=== PATIENT | male | born 1990 | race Caucasian/White ===

== ENCOUNTER 2017-01-13 18:15 | Emergency (ER) | payer MEDICAID ==
[2017-01-13] MEDS ORDERED: NORMAL SALINE 1000 ML 1,000 ML IV ONE (19:10)
[2017-01-13 19:15] LABS: ADD ON TESTING BLD IN LAB ACKNOWLEDGE
--- NOTE | 2017-01-13 19:25 | ER Document Report ---
ED General - General Chief Complaint: Chest Pain Stated Complaint: CHEST PAIN Cannot obtain history due to: Mentally challenged Notes: Patient is a 26-year-old male past history of autism who presents with chest pain. Patient does have difficulty with verbal communication so history is limited. The materials branch chief from his [facility] at the bedside states the patient began complaining of chest pain earlier this morning. He has not complained of this in the past. Patient fell states that his chest feels "cold" but is unable to better clarify his symptoms. Per medical records with the patient he has no prior cardiac history or history of DVT or pulmonary embolus. TRAVEL OUTSIDE OF THE [place] IN LAST 30 DAYS: No - Related Data Allergies/Adverse Reactions: No Known Allergies Allergy (Unverified 11/27/11 16:11) Past Medical History - General Information source: Patient - Social History Smoking Status: Never Smoker Frequency of alcohol use: None Drug Abuse: None Lives with: Other - nursing home Family History: Reviewed & Not Pertinent - Past Medical History Cardiac Medical History: Denies: Hx Coronary Artery Disease, Hx Heart Attack, Hx Hypertension Pulmonary Medical History: Reports: Hx Asthma Denies: Hx Bronchitis, Hx COPD, Hx Pneumonia Neurological Medical History: Denies: Hx Cerebrovascular Accident, Hx Seizures Musculoskeltal Medical History: Denies Hx Arthritis Past Surgical History: Denies: Hx Pacemaker - Immunizations Hx Diphtheria, Pertussis, Tetanus Vaccination: Yes Review of Systems - Review of Systems Notes: Constitutional: Negative for fever. HENT: Negative for sore throat. Eyes: Negative for visual changes. Cardiovascular: Positive for chest pain. Respiratory: Negative for shortness of breath. Gastrointestinal: Negative for abdominal pain, vomiting or diarrhea. Genitourinary: Negative for dysuria. Musculoskeletal: Negative for back pain. Skin: Negative for rash. Neurological: Negative for headaches, weakness or numbness. 10 point ROS negative except as marked above and in HPI. Physical Exam - Vital signs Interpretation: Normal Notes: PHYSICAL EXAMINATION: GENERAL: Well-appearing, well-nourished and in no acute distress. HEAD: Atraumatic, normocephalic. EYES: Pupils equal round and reactive to light, extraocular movements intact, sclera anicteric, conjunctiva are normal. ENT: nares patent, oropharynx clear without exudates. Moist mucous membranes. NECK: Normal range of motion, supple without lymphadenopathy LUNGS: Breath sounds clear to auscultation bilaterally and equal. No wheezes rales or rhonchi. HEART: Regular rate and rhythm without murmurs ABDOMEN: Soft, nontender, normoactive bowel sounds. No guarding, no rebound. No masses appreciated. EXTREMITIES: Normal range of motion, no pitting or edema. No cyanosis. NEUROLOGICAL: No focal neurological deficits. Moves all extremities spontaneously and on command. PSYCH: Apparent intellectual delay SKIN: Warm, Dry, normal turgor, no rashes or lesions noted. Course - Re-evaluation Re-evalutation: 01/13/17 19:21 Patient is a 26-year-old male with history of advanced autism, minimally verbal who presents with concerns of chest pain. Patient's only reported medical history is apparently a prior history of stroke although patient denies knowing anything about this and does not have any focal deficits on exam that would suggest a prior stroke in the past. Patient is notably tachycardic at time of arrival with a heart rate of 118-120. His oxygen saturations are 95% on room air. No tachypnea. Exam is notable for patient shaking and seeming like he is having difficulty sitting up easily in the bed. Will obtain chest x-ray, labs including d-dimer to evaluate for possible pulmonary embolus given tachycardia. 01/13/17 20:33 Patient's d-dimer is normal. Troponin likewise is normal chest x-ray is clear. Patient has had improvement of his discomfort with the GI cocktail. Given that his pain started 8 hours prior to arrival, I do not believe serial troponins are indicated and patient does not have any significant risk factors for ACS.At this time will discharge with return precautions and follow-up recommendations. Verbal discharge instructions given a the bedside and opportunity for questions given. Medication warnings reviewed. Patient is in agreement with this plan and has verbalized understanding of return precautions and the need for primary care follow-up in the next 24-72 hours. HEART Score: History:0 EC Age:0 Risk Factors:0 Troponin:0 Total: 0 - Laboratory Result Diagrams: 01/13/17 18:45 01/13/17 18:45 Laboratory results interpreted by me: 01/13/17 01/13/17 18:45 18:45 RBC 4.09 L Lymphocytes % 12.8 L Monocytes % 14.0 H Glucose 115 H - Diagnostic Test Radiology reviewed: Image reviewed, Reports reviewed Radiology results interpreted by me: 01/13/17 20:35 Chest x-ray: No acute infiltrate or widened mediastinum - EKG Interpretation by Me Additional EKG results interpreted by me: 01/13/17 19:24 Sinus tachycardia. Rate 113. No ST elevations or depressions. No right axis deviation. QTC is 445 Discharge - Discharge Clinical Impression: Chest pain Qualifiers: Chest pain type: unspecified Qualified Code(s): R07.9 - Chest pain, unspecified Condition: Good Disposition: HOME, SELF-CARE Additional Instructions: You were seen today for chest pain. The exact cause of your pain is unclear. However, based on your cardiac enzyme testing, chest x-ray, and EKG it does not appear that it is from an immediately life-threatening cause at this time. Although your testing here is normal is critical that you follow-up with your primary care physician for continued evaluation of this chest pain and possible stress testing. I recommended you see your physician within the next 24-48 hours to be evaluated for consideration of a stress test. Please return to emergency department immediately if you have worsening of your chest pain, shortness of breath, vomiting, become unable to exert yourself due to pain or difficulty breathing, you pass out, or have any pain that radiates into your arms, jaw, or back. Please also return if you have any additional symptoms that are concerning to you.
[2017-01-13 19:28] LABS: ANION GAP 14 (5-19); BLOOD UREA NITROGEN 13 mg/dL (7-20); CALCIUM 9.1 mg/dL (8.4-10.2); CARBON DIOXIDE 26 mmol/L (22-30); CHLORIDE 104 mmol/L (98-107); CREATININE RESULT 0.66 mg/dL (0.52-1.25); GLUCOSE 115 mg/dL (75-110); SODIUM 143.5 mmol/L (137-145)
[2017-01-13 19:29] LABS: ABSOLUTE EOSINOPHILS # (AUTO) 0.1 10^3/uL (0.0-0.6); ABSOLUTE LYMPHOCYTES (AUTO) 0.7 10^3/uL (0.5-4.7); ABSOLUTE MONOCYTES (AUTO) 0.8 10^3/uL (0.1-1.4); BASOPHILS % (AUTO) 0.1 % (0-2); EOSINOPHILS % (AUTO) 1.3 % (0-6); HEMATOCRIT 38.9 % (37.9-51.0); HEMOGLOBIN 13.6 g/dL (13.5-17.0); HGB HCT DIFFERENCE 1.9; LYMPHOCYTES % (AUTO) 12.8 % (13-45); MEAN CORPUSCULAR HEMOGLOBIN 33.3 pg (27.0-33.4); MEAN CORPUSCULAR HGB CONC 34.9 g/dL (32.0-36.0); MEAN CORPUSCULAR VOLUME 95 fl (80-97); RED BLOOD COUNT 4.09 10^6/uL (4.35-5.55); RED CELL DISTRIBUTION WIDTH 13.2 % (11.5-14.0); SEGMENTED NEUTROPHILS % (AUTO) 71.8 % (42-78); WHITE BLOOD COUNT 5.5 10^3/uL (4.0-10.5)
[2017-01-13] MEDS ORDERED: MAG HYDROX/AL HYDROX/SIMETH SUSP 30 ML UDCUP PO ONE (20:23)
[2017-01-13] MEDS ORDERED: LIDOCAINE 2% VISCOUS SOLN 20 ML UDCUP PO ONE (20:23)
[2017-01-13] MEDS ORDERED: METOCLOPRAMIDE HCL ORAL SOLN 10 MG/10 ML UDCUP PO ONE (20:23)
[2017-01-13] MEDS ORDERED: KETOROLAC TROMETHAMINE INJ/PF 30 MG/1 ML SDV IV ONE (20:46)
[2017-01-13 21:02] VITALS: BP 130/84
--- NOTE | 2017-01-14 00:06 | EKG REPORT ---
SEVERITY:- OTHERWISE NORMAL ECG - SINUS TACHYCARDIA : Confirmed by: Jessy Renner 14-Jan-2017 00:05:05
== END 2017-01-13 21:17 | disposition home or self-care (01) ==
LOC: ER 18:15
DX: R07.9 Chest pain, unspecified (principal); R00.0 Tachycardia, unspecified; F84.0 Autistic disorder; J45.909 Unspecified asthma, uncomplicated
CPT/HCPCS: 93005; 99285; 96361; 96374; 36415; 85025; 80048; 84484; 85379; 71010; 93010; J3490 ×3; J1885; J7030

== ENCOUNTER → 2017-06-21 | Outpatient (CLI) | payer MEDICAID ==
[2017-06-21 11:45] LABS: ABSOLUTE EOSINOPHILS # (AUTO) 0.1 10^3/uL (0.0-0.6); ABSOLUTE LYMPHOCYTES (AUTO) 1.8 10^3/uL (0.5-4.7); ABSOLUTE MONOCYTES (AUTO) 0.4 10^3/uL (0.1-1.4); ABSOLUTE NEUT (AUTO) 2.2 10^3/uL (1.7-8.2); BASOPHILS % (AUTO) 0.4 % (0-2); EOSINOPHILS % (AUTO) 2.2 % (0-6); HEMOGLOBIN 13.4 g/dL (13.5-17.0); HGB HCT DIFFERENCE 1.2; LYMPHOCYTES % (AUTO) 39.1 % (13-45); MEAN CORPUSCULAR HEMOGLOBIN 33.3 pg (27.0-33.4); MEAN CORPUSCULAR HGB CONC 34.3 g/dL (32.0-36.0); MEAN CORPUSCULAR VOLUME 97 fl (80-97); MONOCYTES % (AUTO) 9.3 % (3-13); RED BLOOD COUNT 4.02 10^6/uL (4.35-5.55); RED CELL DISTRIBUTION WIDTH 13.5 % (11.5-14.0); WHITE BLOOD COUNT 4.5 10^3/uL (4.0-10.5)
[2017-06-21 11:54] LABS: ALANINE AMINOTRANSFERASE 49 U/L (21-72); ALBUMIN 4.4 g/dL (3.5-5.0); ALKALINE PHOSPHATASE 86 U/L (38-126); ANION GAP 14 (5-19); ASPARTATE AMINO TRANSFERASE 29 U/L (17-59); BILIRUBIN,DIRECT 0.4 mg/dL (0.0-0.4); BILIRUBIN,TOTAL 0.4 mg/dL (0.2-1.3); BLOOD UREA NITROGEN 11 mg/dL (7-20); CALCIUM 10.1 mg/dL (8.4-10.2); CARBON DIOXIDE 27 mmol/L (22-30); CHLORIDE 102 mmol/L (98-107); CHOLESTEROL 175.96 mg/dL (0-200); CREATININE RESULT 0.83 mg/dL (0.52-1.25); Direct HDL 46 mg/dL (>40); GLUCOSE 91 mg/dL (75-110); POTASSIUM 4.8 mmol/L (3.6-5.0); SODIUM 143.3 mmol/L (137-145); TOTAL PROTEIN 7.1 g/dL (6.3-8.2); TRIGLYCERIDES 200 mg/dL (<150)
[2017-06-21 12:05] LABS: DIRECT LDL 109 mg/dL (<100); VALPROIC ACID 90.1 ug/mL (50.0-120.0)
== END ==
LOC: OD 10:43
PROVIDERS: ATTEND Physician Assistant
DX: F43.12 Post-traumatic stress disorder, chronic (principal); Z79.899 Other long term (current) drug therapy
CPT/HCPCS: 36415; 80053; 80061; 80164; 83036; 85025

== ENCOUNTER → 2018-06-21 | Outpatient (CLI) | payer MEDICAID ==
[2018-06-21 09:42] LABS: ABSOLUTE EOSINOPHILS # (AUTO) 0.1 10^3/uL (0.0-0.6); ABSOLUTE LYMPHOCYTES (AUTO) 1.7 10^3/uL (0.5-4.7); ABSOLUTE MONOCYTES (AUTO) 0.5 10^3/uL (0.1-1.4); ABSOLUTE NEUT (AUTO) 1.8 10^3/uL (1.7-8.2); BASOPHILS % (AUTO) 0.5 % (0-2); EOSINOPHILS % (AUTO) 2.3 % (0-6); HEMATOCRIT 38.9 % (37.9-51.0); HEMOGLOBIN 13.4 g/dL (13.5-17.0); LYMPHOCYTES % (AUTO) 41.4 % (13-45); MEAN CORPUSCULAR HGB CONC 34.3 g/dL (32.0-36.0); MEAN CORPUSCULAR VOLUME 96 fl (80-97); PLATELET COUNT 173 10^3/uL (150-450); RED BLOOD COUNT 4.05 10^6/uL (4.35-5.55); RED CELL DISTRIBUTION WIDTH 13.3 % (11.5-14.0); SEGMENTED NEUTROPHILS % (AUTO) 43.8 % (42-78); TOTAL CELLS COUNTED % (AUTO) 100 %; WHITE BLOOD COUNT 4.2 10^3/uL (4.0-10.5)
[2018-06-21 10:05] LABS: ALANINE AMINOTRANSFERASE 43 U/L (21-72); ALBUMIN 4.5 g/dL (3.5-5.0); ALKALINE PHOSPHATASE 79 U/L (38-126); ANION GAP 12 (5-19); ASPARTATE AMINO TRANSFERASE 25 U/L (17-59); BILIRUBIN,DIRECT 0.2 mg/dL (0.0-0.4); BILIRUBIN,TOTAL 0.4 mg/dL (0.2-1.3); BLOOD UREA NITROGEN 11 mg/dL (7-20); CALCIUM 9.9 mg/dL (8.4-10.2); CARBON DIOXIDE 26 mmol/L (22-30); CHLORIDE 103 mmol/L (98-107); CHOLESTEROL 171.25 mg/dL (0-200); GLUCOSE 93 mg/dL (75-110); POTASSIUM 4.5 mmol/L (3.6-5.0); SODIUM 141.4 mmol/L (137-145); TOTAL PROTEIN 7.1 g/dL (6.3-8.2); TRIGLYCERIDES 204 mg/dL (<150)
[2018-06-21 10:31] LABS: DIRECT LDL 91 mg/dL (<100)
[2018-06-21 10:35] LABS: VLDL CHOLESTEROL 40.8 mg/dL (10-31)
== END ==
LOC: LAB 09:16
PROVIDERS: ATTEND Physician Assistant
DX: F43.12 Post-traumatic stress disorder, chronic (principal); Z79.899 Other long term (current) drug therapy
CPT/HCPCS: 36415; 80053; 80061; 80164; 83036; 84146; 85025

== ENCOUNTER → 2019-04-14 | Outpatient (CLI) | payer MEDICAID ==
[2019-04-14 10:30] LABS: ABSOLUTE EOSINOPHILS # (AUTO) 0.2 10^3/uL (0.0-0.6); ABSOLUTE LYMPHOCYTES (AUTO) 1.9 10^3/uL (0.5-4.7); ABSOLUTE MONOCYTES (AUTO) 0.4 10^3/uL (0.1-1.4); ABSOLUTE NEUT (AUTO) 1.8 10^3/uL (1.7-8.2); BASOPHILS % (AUTO) 0.3 % (0-2); EOSINOPHILS % (AUTO) 5.2 % (0-6); HEMATOCRIT 40.6 % (37.9-51.0); HEMOGLOBIN 14.1 g/dL (13.5-17.0); LYMPHOCYTES % (AUTO) 43.1 % (13-45); MEAN CORPUSCULAR HEMOGLOBIN 33.4 pg (27.0-33.4); MEAN CORPUSCULAR HGB CONC 34.8 g/dL (32.0-36.0); MEAN CORPUSCULAR VOLUME 96 fl (80-97); MONOCYTES % (AUTO) 9.5 % (3-13); PLATELET COUNT 162 10^3/uL (150-450); RED BLOOD COUNT 4.23 10^6/uL (4.35-5.55); RED CELL DISTRIBUTION WIDTH 13.3 % (11.5-14.0); SEGMENTED NEUTROPHILS % (AUTO) 41.9 % (42-78); TOTAL CELLS COUNTED % (AUTO) 100 %; WHITE BLOOD COUNT 4.4 10^3/uL (4.0-10.5)
[2019-04-14 10:54] LABS: ALANINE AMINOTRANSFERASE 42 U/L (21-72); ALBUMIN 4.6 g/dL (3.5-5.0); ALKALINE PHOSPHATASE 79 U/L (38-126); ANION GAP 10 (5-19); ASPARTATE AMINO TRANSFERASE 30 U/L (17-59); BILIRUBIN,DIRECT 0.2 mg/dL (0.0-0.4); BILIRUBIN,TOTAL 0.3 mg/dL (0.2-1.3); BLOOD UREA NITROGEN 11 mg/dL (7-20); CALCIUM 9.7 mg/dL (8.4-10.2); CARBON DIOXIDE 29 mmol/L (22-30); CHLORIDE 103 mmol/L (98-107); CHOLESTEROL 193.55 mg/dL (0-200); GLUCOSE 89 mg/dL (75-110); POTASSIUM 4.9 mmol/L (3.6-5.0); SODIUM 141.8 mmol/L (137-145); TOTAL PROTEIN 7.2 g/dL (6.3-8.2); TRIGLYCERIDES 256 mg/dL (<150)
[2019-04-14 11:05] LABS: DIRECT LDL 116 mg/dL (<100)
[2019-04-14 11:06] LABS: VLDL CHOLESTEROL 51.2 mg/dL (10-31)
== END ==
LOC: OD 09:31
PROVIDERS: ATTEND Physician Assistant
DX: F43.12 Post-traumatic stress disorder, chronic (principal); Z79.899 Other long term (current) drug therapy
CPT/HCPCS: 36415; 80053; 80061; 80164; 83036; 84146; 85025

== ENCOUNTER 2019-11-05 09:53 | Inpatient (IN) | payer MEDICAID ==
[2019-11-05] MEDS ORDERED: NORMAL SALINE 1000 ML 1,000 ML IV ONE (10:29)
[2019-11-05] MEDS ORDERED: ONDANSETRON HCL INJ/PF 4 MG/2 ML SDV IV ONE (10:29)
[2019-11-05] MEDS ORDERED: IPRATROPIUM/ALBUTEROL 0.5-2.5 MG/3 ML AMPUL NEB SCH ×2 (10:30)
--- NOTE | 2019-11-05 10:41 | ER Document Report ---
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 Vomiting x1. Some minimal nasal congestion. Mild nonproductive cough. Minimal sore throat. No complaints of chest or abdominal pain. No rash appreciated. ROS: See HPI All other review of systems reviewed and otherwise negative Reviewed vital signs and nursing note as charted by RN. PHYSICAL EXAM: CONSTITUTIONAL: Alert and does answer questions HEAD: Normocephalic; atraumatic EYES: PERRL; Conjunctivae clear, sclerae non-icteric ENT: Normal nose; bilateral nonpurulent nasal rhinorrhea; moist mucous membranes; pharynx minimally erythematous with no peritonsillar swelling with a nonswollen midline uvula NECK: Supple without meningismus; non-tender; no cervical lymphadenopathy, no masses CARD: Regular rate and rhythm; no murmurs; symmetric distal pulses RESP: Normal chest excursion without splinting or tachypnea; breath sounds clear and equal bilaterally; no wheezes, no rhonchi, no rales ABD/GI: Normal bowel sounds; non-distended; soft, non-tender; no palpable organomegaly or masses BACK: The back appears normal and is non-tender to palpation EXT: Normal ROM in all joints; non-tender to palpation; no edema SKIN: No acute lesions noted NEURO: CN 2-12 intact; 5/5 bilateral upper and lower extremity strength with sensation intact to light touch TRAVEL OUTSIDE OF THE [place] IN LAST 30 DAYS: No - Related Data Allergies/Adverse Reactions: acetaminophen [From Tylenol] Allergy (Verified 11/05/19 10:32) Past Medical History - Social History Smoking Status: Never Smoker Family History: Reviewed & Not Pertinent Patient has suicidal ideation: No Patient has homicidal ideation: No - Past Medical History Cardiac Medical History: Denies: Hx Coronary Artery Disease, Hx Heart Attack, Hx Hypertension Pulmonary Medical History: Reports: Hx Asthma Denies: Hx Bronchitis, Hx COPD, Hx Pneumonia Neurological Medical History: Denies: Hx Cerebrovascular Accident, Hx Seizures Musculoskeletal Medical History: Denies Hx Arthritis Past Surgical History: Denies: Hx Pacemaker - Immunizations Hx Diphtheria, Pertussis, Tetanus Vaccination: Yes Physical Exam - Vital signs Vitals: Temp Pulse Resp BP Pulse Ox 97.2 F 99 23 H 100/71 94 11/05/19 09:53 11/05/19 09:53 11/05/19 09:53 11/05/19 09:53 11/05/19 09:53 Course - Re-evaluation Re-evalutation: 11/05/19 10:40 Given the history and physical examination we will order a rapid strep, influenza, x-ray of the chest, and reassess. Patient initial oxygen saturation was supposedly in the 80s on room air. He received 1 nebulizer. I do not auscultate any rhonchi or wheezing. 11/05/19 12:00 Imaging and labs as recorded. Oxygenation is improved on 2 L. Broad-spectrum antibiotics have been provided. Blood cultures have been sent. Influenza is negative. Patient will be admitted for further evaluation and treatment. - Vital Signs Vital signs: Temp Pulse Resp BP Pulse Ox 98.0 F 99 22 H 108/67 90 L 11/05/19 10:58 11/05/19 09:53 11/05/19 11:17 11/05/19 11:17 11/05/19 11:17 - Laboratory Result Diagrams: 11/05/19 10:23 11/05/19 10:23 Laboratory results interpreted by me: 11/05/19 11/05/19 11/05/19 10:15 10:23 10:23 RBC 4.28 L Plt Count 114 L Lymph % (Auto) 5.5 L Seg Neutrophils % 83.2 H Sodium 135.7 L Chloride 97 L BUN 23 H Glucose 174 H POC Glucose 215 H Discharge - Discharge Clinical Impression: Bacterial pneumonia, Hypoxia Condition: Fair Disposition: ADMITTED INPATIENT Admitting Provider: Phyllis (Hospitalist) Referrals: ANNEMARIE ANGULO PA-C [NO LOCAL MD] - Follow up as needed
[2019-11-05 11:03] LABS: ABSOLUTE LYMPHOCYTES (AUTO) 0.5 10^3/uL (0.5-4.7); ABSOLUTE MONOCYTES (AUTO) 0.9 10^3/uL (0.1-1.4); ABSOLUTE NEUT (AUTO) 6.8 10^3/uL (1.7-8.2); BASOPHILS % (AUTO) 0.2 % (0-2); HEMATOCRIT 40.8 % (37.9-51.0); HEMOGLOBIN 14.1 g/dL (13.5-17.0); LYMPHOCYTES % (AUTO) 5.5 % (13-45); MEAN CORPUSCULAR HEMOGLOBIN 33.1 pg (27.0-33.4); MEAN CORPUSCULAR HGB CONC 34.7 g/dL (32.0-36.0); MEAN CORPUSCULAR VOLUME 96 fl (80-97); MONOCYTES % (AUTO) 11.1 % (3-13); PLATELET COUNT 114 10^3/uL (150-450); RED BLOOD COUNT 4.28 10^6/uL (4.35-5.55); RED CELL DISTRIBUTION WIDTH 13.3 % (11.5-14.0); SEGMENTED NEUTROPHILS % (AUTO) 83.2 % (42-78); TOTAL CELLS COUNTED % (AUTO) 100 %; WHITE BLOOD COUNT 8.2 10^3/uL (4.0-10.5)
[2019-11-05 11:19] LABS: A TYPE INFLUENZA AG NEGATIVE (NEGATIVE); B INFLUENZA AG NEGATIVE (NEGATIVE)
[2019-11-05 11:25] LABS: ALBUMIN 3.6 g/dL (3.5-5.0); ALKALINE PHOSPHATASE 92 U/L (38-126); ANION GAP 12 (5-19); ASPARTATE AMINO TRANSFERASE 51 U/L (17-59); BILIRUBIN,DIRECT 0.4 mg/dL (0.0-0.4); BILIRUBIN,TOTAL 0.6 mg/dL (0.2-1.3); BLOOD UREA NITROGEN 23 mg/dL (7-20); CARBON DIOXIDE 27 mmol/L (22-30); CHLORIDE 97 mmol/L (98-107); GLUCOSE 174 mg/dL (75-110); TOTAL PROTEIN 6.4 g/dL (6.3-8.2)
--- NOTE | 2019-11-05 11:31 | RADIOLOGY REPORT (SQ) ---
EXAM DESCRIPTION: SHOULDER RIGHT 2 OR MORE VIEWS COMPLETED DATE/TIME: 11/05/2019 11:17 am REASON FOR STUDY: fell out of bed COMPARISON: None. NUMBER OF VIEWS: Three views. TECHNIQUE: Internal rotation, external rotation, and Y view images acquired of the right shoulder. LIMITATIONS: None. FINDINGS: MINERALIZATION: Normal. BONES: No acute fracture. No worrisome bone lesions. JOINTS: There is widening of the AC joint measured at 6.9 mm. This normally ranges between 2 and 4 m m. This could represent chronic or acute separation. VISUALIZED LUNGS AND RIBS: No pneumothorax. No rib fracture. SOFT TISSUES: No radiopaque foreign body. OTHER: No other significant finding. IMPRESSION: Widening of the right AC joint as described. No fracture. TECHNICAL DOCUMENTATION: JOB ID: [id number] [employer]- All Rights Reserved Reading location - IP/workstation name: [email or web address]
--- NOTE | 2019-11-05 11:32 | RADIOLOGY REPORT (SQ) ---
EXAM DESCRIPTION: CHEST 2 VIEWS COMPLETED DATE/TIME: 11/05/2019 11:17 am REASON FOR STUDY: 35; cough and sob COMPARISON: 03/19/2009 EXAM PARAMETERS: NUMBER OF VIEWS: two views TECHNIQUE: Digital Frontal and Lateral radiographic views of the chest acquired. RADIATION DOSE: NA LIMITATIONS: none FINDINGS: LUNGS AND PLEURA: Left lower lobe infiltrate consistent with pneumonia. Probable small le ft effusion. Minimal right basilar airspace disease either atelectasis or pneumonia. Underlying ple ural base mass on the left cannot be excluded. MEDIASTINUM AND HILAR STRUCTURES: No masses or contour abnormalities. HEART AND VASCULAR STRUCTURES: Heart normal size. No evidence for failure. BONES: No acute findings. HARDWARE: None in the chest. OTHER: No other significant finding. IMPRESSION: Findings most likely represent left lower lobe pneumonia and a small effusion. Follow-u p films are recommended to exclude underlying mass lesion. TECHNICAL DOCUMENTATION: JOB ID: [id number] [employer]- All Rights Reserved Reading location - IP/workstation name: [email or web address]
[2019-11-05] MEDS ORDERED: AZITHROMYCIN INJ 500 MG VIAL IV ONE (11:50)
[2019-11-05] MEDS ORDERED: CEFTRIAXONE 1 GM/D5W RTU 1 GM/50 ML RTUPB IV ONE (11:50)
[2019-11-05] MEDS ORDERED: MAGNESIUM HYDROXIDE SUSP 30 ML UDCUP PO PRN (13:32)
[2019-11-05] MEDS ORDERED: PROMETHAZINE HCL INJ 25 MG/1 ML VIAL IV PRN (13:32)
--- NOTE | 2019-11-05 13:54 | PDOC H&P ---
History of Present Illness Admission Date/PCP: BISHNU CID PA-C History of Present Illness: ANTHONY CARLSON is a 29 year old male who has a day history now of fall fever chills body aches. Patient unfortunately is autistic and lives in a [facility] so therefore his history is given by his care provider. They said on Sunday he started complaining of just not feeling well and then on Sunday he complained more body aches. Sunday he started running a fever today she was get ready taking to his primary care provider when he was just so weak he could not get out of bed she called 911. Patient has also had a cough. Chest x-ray today shows a probable left lower lobe pneumonia and a small effusion. White blood cell counts 8200. Rapid strep is negative flu flu a and B is negative Lactic acid level is pending Will be started on IVs Rocephin and Zithromax, IV fluids. Told the care provider that was in the room may take up to 5 days for the patient to improve enough to where he can be switched to p.o. antibiotics. Also if this is a viral illness the antibiotics will not make much of a difference. Since his illness is gone on for 4 days now he is out of the window for Tamiflu that I would potentially add to the antibiotics Patient did answer my questions appropriately in the emergency room, though he appeared to be somewhat lethargic. Caregiver states that he is normally usually wide awake and active. Past Medical History Cardiac Medical History: Denies: Coronary Artery Disease, Myocardial Infarction, Hypertension Pulmonary Medical History: Reports: Asthma Denies: Bronchitis, Chronic Obstructive Pulmonary Disease (COPD), Pneumonia Neurological Medical History: Denies: Seizures Musculoskeltal Medical History: Denies: Arthritis Hematology: Denies: Anemia Past Surgical History Past Surgical History: Denies: Pacemaker Social History Smoking Status: Never Smoker - Advance Directive Resuscitation Status: Full Code Family History Family History: Reviewed & Not Pertinent Parental Family History Reviewed: No Children Family History Reviewed: No Sibling(s) Family History Reviewed.: No Medication/Allergy Home Medications: Bismuth Subsalicylate [Pepto-Bismol 262 Chewable Tablet] 2 PO Q4 PRN 11/27/11 Clindamycin Phos/Benzoyl Perox [Clindamycin-Benzoyl Perox Gel] 50 gm TP BID 11/27/11 Divalproex Sodium [Depakote ER 500 mg Tab.sr] 1,500 mg QHS 11/27/11 Doxycycline Hyclate 100 mg PO DAILY 11/27/11 Ibuprofen [Motrin] 200 mg PO Q6 11/27/11 Lamotrigine [Lamictal Odt] DAILY 11/27/11 Lanolin/Petrolatum,White [Phisoderm Regular Liq. Soap] 480 ml TP BID 11/27/11 Levothyroxine Sodium [Tirosint] 110 mcg PO DAILY 11/27/11 Meclizine 25 mg PO TID PRN 11/27/11 Megestrol Acetate [Megace] 800 mg PO DAILY 11/27/11 Multivitamins/Iron/Folic Acid [Cerovite Advanced Form Tab] 1 each PO DAILY 11/27/11 Neomy Sulf/Bacitra/Polymyxin B [Triple Antibiotic Ointment] BID 11/27/11 Oxcarbazepine [Trileptal] 600 mg PO QHS 11/27/11 Quetiapine Fumarate [Seroquel] 800 mg PO QHS 11/27/11 Ranitidine HCl [Zantac] 150 mg PO BID 11/27/11 Trazodone HCl [Oleptro Er] 300 mg PO QHS 11/27/11 Omeprazole 20 mg 12/07/11 Allergies/Adverse Reactions: acetaminophen [From Tylenol] Allergy (Verified 11/05/19 10:32) Review of Systems Constitutional: PRESENT: chills, fatigue, fever(s), weakness Respiratory: PRESENT: cough Gastrointestinal: ABSENT: abdominal pain, constipation, diarrhea, hematemesis, hematochezia, nausea, vomiting Neurological: ABSENT: abnormal gait, abnormal speech, confusion, dizziness, focal weakness, syncope Psychiatric: ABSENT: anxiety, depression, homidical ideation, suicidal ideation Physical Exam Vital Signs: Temp Pulse Resp BP Pulse Ox 98.0 F 99 18 104/68 88 L 11/05/19 10:58 11/05/19 09:53 11/05/19 13:20 11/05/19 13:01 11/05/19 13:20 Intake & Output 11/04/19 11/05/19 11/06/19 06:59 06:59 06:59 Intake Total 1000 Balance 1000 Weight 100.879 kg General appearance: PRESENT: no acute distress, other - Patient is sleepy but arouses easily to voice command. States he just does not feel good Respiratory exam: PRESENT: decreased breath sounds, rhonchi Cardiovascular exam: PRESENT: RRR. ABSENT: diastolic murmur, rubs, systolic murmur Neurological exam: PRESENT: awake, other - Caregiver states he is usually much more alert and energetic talkative Psychiatric exam: PRESENT: depressed, flat affect, unusual affect, other - Patient lives in a penitentiary secondary to his autism Results Laboratory Results: 11/05/19 10:23 11/05/19 10:23 11/05/19 11/05/19 10:23 10:23 WBC 8.2 RBC 4.28 L Hgb 14.1 Hct 40.8 MCV 96 MCH 33.1 MCHC 34.7 RDW 13.3 Plt Count 114 L Seg Neutrophils % 83.2 H Sodium 135.7 L Potassium 4.0 Chloride 97 L Carbon Dioxide 27 Anion Gap 12 BUN 23 H Creatinine 0.84 Est GFR ( Amer) > 60 Glucose 174 H Calcium 9.0 Total Bilirubin 0.6 AST 51 Alkaline Phosphatase 92 Total Protein 6.4 Albumin 3.6 Impressions: Shoulder X-Ray 11/05/19 00:00 IMPRESSION: Widening of the right AC joint as described. No fracture. Chest X-Ray 11/05/19 10:29 IMPRESSION: Findings most likely represent left lower lobe pneumonia and a small effusion. Follow-up films are recommended to exclude underlying mass lesion. Assessment and Plan - Diagnosis (1) Autism Is this a current diagnosis for this admission?: Yes (2) Bacterial pneumonia Is this a current diagnosis for this admission?: Yes (3) Hypoxia Is this a current diagnosis for this admission?: Yes - Plan Summary Summary: 11/04/2019 Start patient on IV fluids, broad-spectrum IV antibiotics. I have actually called the lab and spoken to them about our flu swabs. Lab inform me that they are very specific and sensitive in about 95% accurate. Also that the ED staff is been trained on how to take a specimen, therefore I doubt that the patient has the flu. Lactic acid is pending, serial labs will be drawn - Time Time Spent with patient: 35 or more minutes
[2019-11-05] MEDS: NORMAL SALINE 1000 ML 1,000 ML IV PRN (18:58)
[2019-11-05] MEDS: DOCUSATE SODIUM 100 MG CAPSULE PO SCH (20:30)
[2019-11-05] MEDS: IBUPROFEN 800 MG TABLET PO PRN (21:53)
[2019-11-05] MEDS ORDERED: INFLUENZA QUAD (6MOS+) 2019-20 VAC 0.5 ML SYR IM ONE (22:40)
[2019-11-05] MEDS: OXCARBAZEPINE 150 MG TABLET PO SCH (23:38)
[2019-11-05] MEDS: DIVALPROEX SODIUM 250 MG TABLET.DR PO SCH (23:38)
[2019-11-05] MEDS: LAMOTRIGINE 100 MG TABLET PO SCH (23:39)
[2019-11-05] MEDS: QUETIAPINE FUMARATE 100 MG TABLET PO SCH (23:39)
[2019-11-05] MEDS: ZOLPIDEM TARTRATE 5 MG TABLET PO SCH (23:40)
[2019-11-05] MEDS: BENZTROPINE MESYLATE 1 MG TABLET PO SCH (23:40)
[2019-11-05] MEDS: ATORVASTATIN CALCIUM 10 MG TABLET PO SCH (23:40)
[2019-11-06] MEDS: NORMAL SALINE 1000 ML 1,000 ML IV PRN ×2 (05:03→17:11)
[2019-11-06 05:13] LABS: ABSOLUTE LYMPHOCYTES (AUTO) 0.5 10^3/uL (0.5-4.7); TOTAL CELLS COUNTED % (AUTO) 100 %
[2019-11-06 05:19] LABS: ABSOLUTE MONOCYTES (AUTO) 0.4 10^3/uL (0.1-1.4); ABSOLUTE NEUT (AUTO) 3.3 10^3/uL (1.7-8.2); BASOPHILS % (AUTO) 0.2 % (0-2); EOSINOPHILS % (AUTO) 0.1 % (0-6); HEMATOCRIT 34.9 % (37.9-51.0); HEMOGLOBIN 12.3 g/dL (13.5-17.0); LYMPHOCYTES % (AUTO) 10.9 % (13-45); MEAN CORPUSCULAR HEMOGLOBIN 33.4 pg (27.0-33.4); MEAN CORPUSCULAR HGB CONC 35.2 g/dL (32.0-36.0); MEAN CORPUSCULAR VOLUME 95 fl (80-97); MONOCYTES % (AUTO) 10.3 % (3-13); PLATELET COUNT 106 10^3/uL (150-450); RED BLOOD COUNT 3.69 10^6/uL (4.35-5.55); SEGMENTED NEUTROPHILS % (AUTO) 78.5 % (42-78); WHITE BLOOD COUNT 4.2 10^3/uL (4.0-10.5)
[2019-11-06 05:33] LABS: ANION GAP 7 (5-19); BLOOD UREA NITROGEN 17 mg/dL (7-20); CALCIUM 8.4 mg/dL (8.4-10.2); CARBON DIOXIDE 30 mmol/L (22-30); CHLORIDE 100 mmol/L (98-107); GLUCOSE 114 mg/dL (75-110); POTASSIUM 4.5 mmol/L (3.6-5.0)
[2019-11-06] MEDS ORDERED: LEVOTHYROXINE SODIUM 0.075 MG TABLET ONE (05:37)
[2019-11-06] MEDS: PANTOPRAZOLE SODIUM 20 MG TABLET.DR PO SCH (05:44)
[2019-11-06] MEDS: LEVOTHYROXINE SODIUM 0.075 MG TABLET PO SCH (05:44)
[2019-11-06] MEDS: LEVOTHYROXINE SODIUM 0.1 MG TABLET PO SCH (05:44)
[2019-11-06] MEDS: MULTIVITAMIN TABLET PO SCH (09:28)
[2019-11-06] MEDS: DOCUSATE SODIUM 100 MG CAPSULE PO SCH ×2 (09:28→17:12)
[2019-11-06] MEDS: LAMOTRIGINE 100 MG TABLET PO SCH ×2 (09:29→21:13)
[2019-11-06] MEDS: ENOXAPARIN SODIUM INJ 40 MG/0.4 ML DISP.SYRIN SUBCUT SCH (09:33)
[2019-11-06] MEDS: CEFTRIAXONE 1 GM/D5W RTU 1 GM/50 ML RTUPB IV SCH (09:40)
[2019-11-06] MEDS: AZITHROMYCIN 500 MG in DEXTROSE 5%-WATER 250 ML IV SCH (10:17)
[2019-11-06] MEDS: IBUPROFEN 800 MG TABLET PO PRN ×2 (11:12→17:12)
--- NOTE | 2019-11-06 11:20 | PDOC PROGRESS REPORT ---
Subjective Progress Note for:: 11/06/19 Reason For Visit: AUTISM,PNEUMONIA,HYPOXIA,BODY ACHES 11/06/2019 Patient admitted for acute complaint of pneumonia, 4 day history Physical Exam Vital Signs: Temp Pulse Resp BP Pulse Ox 101.6 F H 124 H 16 127/71 H 94 11/06/19 10:53 11/06/19 10:53 11/06/19 10:53 11/06/19 10:53 11/06/19 10:53 Intake & Output 11/05/19 11/06/19 11/07/19 06:59 06:59 06:59 Intake Total 2049 Output Total 650 Balance 1400 Weight 100 kg General appearance: PRESENT: mild distress, other - Patient is more alert today than admission last night answering questions Respiratory exam: PRESENT: decreased breath sounds Cardiovascular exam: PRESENT: RRR. ABSENT: diastolic murmur, rubs, systolic murmur Neurological exam: PRESENT: alert, awake, oriented to person, oriented to place, oriented to time, oriented to situation, CN II-XII grossly intact, other - Baseline for his autism. ABSENT: motor sensory deficit Psychiatric exam: PRESENT: unusual affect Results Laboratory Results: 11/06/19 04:36 11/06/19 04:36 11/05/19 11/05/19 11/06/19 10:23 10:23 04:36 WBC 4.2 RBC 3.69 L Hgb 12.3 L Hct 34.9 L MCV 95 MCH 33.4 MCHC 35.2 RDW 13.0 Plt Count 106 L Seg Neutrophils % 78.5 H Sodium 135.7 L Potassium 4.0 Chloride 97 L Carbon Dioxide 27 Anion Gap 12 BUN 23 H Creatinine 0.84 Est GFR ( Amer) > 60 Glucose 174 H Lactic Acid 2.0 Calcium 9.0 Magnesium Total Bilirubin 0.6 AST 51 Alkaline Phosphatase 92 Total Protein 6.4 Albumin 3.6 11/06/19 04:36 WBC RBC Hgb Hct MCV MCH MCHC RDW Plt Count Seg Neutrophils % Sodium 136.8 L Potassium 4.5 Chloride 100 Carbon Dioxide 30 Anion Gap 7 BUN 17 Creatinine 0.74 Est GFR ( Amer) > 60 Glucose 114 H Lactic Acid Calcium 8.4 Magnesium 2.3 Total Bilirubin AST Alkaline Phosphatase Total Protein Albumin Impressions: Shoulder X-Ray 11/05/19 00:00 IMPRESSION: Widening of the right AC joint as described. No fracture. Chest X-Ray 11/05/19 10:29 IMPRESSION: Findings most likely represent left lower lobe pneumonia and a small effusion. Follow-up films are recommended to exclude underlying mass lesion. Assessment and Plan - Diagnosis (1) Autism Is this a current diagnosis for this admission?: Yes (2) Bacterial pneumonia Is this a current diagnosis for this admission?: Yes (3) Hypoxia Is this a current diagnosis for this admission?: Yes - Plan Summary Summary: 11/05/2019 Start patient on IV fluids, broad-spectrum IV antibiotics. I have actually call ed the lab and spoken to them about our flu swabs. Lab inform me that they are very specific and sensitive in about 95% accurate. Also that the ED staff is been trained on how to take a specimen, therefore I doubt that the patient has the flu. Lactic acid is pending, serial labs will be drawn 11/06/2019 Temperature this morning 101.6, heart rate anywhere from 103-124 Blood pressure 127/71 and O2 sat 92-95 on 5 L we will try to wean this down to 3 White blood cell count still normal 4200 Lactic acid level yesterday was 2.0 Glucose levels are running a little higher we will check a hemoglobin A1c Blood cultures and throat cultures are pending Patient's fever is being treated with Motrin 800 mg. Currently on IV Zithromax and IV Rocephin Clinically patient appears improved - Time Time Spent with patient: 25-34 minutes
[2019-11-06 12:46] LABS: ABSOLUTE LYMPHOCYTES (AUTO) 0.3 10^3/uL (0.5-4.7); ABSOLUTE MONOCYTES (AUTO) 0.3 10^3/uL (0.1-1.4); ABSOLUTE NEUT (AUTO) 1.9 10^3/uL (1.7-8.2); BASOPHILS % (AUTO) 0.3 % (0-2); HEMATOCRIT 34.8 % (37.9-51.0); HEMOGLOBIN 12.1 g/dL (13.5-17.0); LYMPHOCYTES % (AUTO) 10.9 % (13-45); MEAN CORPUSCULAR HEMOGLOBIN 33.2 pg (27.0-33.4); MEAN CORPUSCULAR HGB CONC 34.8 g/dL (32.0-36.0); MEAN CORPUSCULAR VOLUME 96 fl (80-97); MONOCYTES % (AUTO) 12.1 % (3-13); PLATELET COUNT 107 10^3/uL (150-450); RED BLOOD COUNT 3.65 10^6/uL (4.35-5.55); RED CELL DISTRIBUTION WIDTH 13.2 % (11.5-14.0); SEGMENTED NEUTROPHILS % (AUTO) 76.7 % (42-78); TOTAL CELLS COUNTED % (AUTO) 100 %
[2019-11-06 12:53] LABS: WHITE BLOOD COUNT 2.5 10^3/uL (4.0-10.5)
[2019-11-06 13:16] LABS: ANION GAP 8 (5-19); BLOOD UREA NITROGEN 13 mg/dL (7-20); CALCIUM 8.4 mg/dL (8.4-10.2); CARBON DIOXIDE 28 mmol/L (22-30); CHLORIDE 97 mmol/L (98-107); GLUCOSE 124 mg/dL (75-110); POTASSIUM 4.2 mmol/L (3.6-5.0)
[2019-11-06] MEDS: OXCARBAZEPINE 150 MG TABLET PO SCH (21:11)
[2019-11-06] MEDS: DIVALPROEX SODIUM 250 MG TABLET.DR PO SCH (21:12)
[2019-11-06] MEDS: ZOLPIDEM TARTRATE 5 MG TABLET PO SCH (21:12)
[2019-11-06] MEDS: QUETIAPINE FUMARATE 100 MG TABLET PO SCH (21:12)
[2019-11-06] MEDS: BENZTROPINE MESYLATE 1 MG TABLET PO SCH (21:12)
[2019-11-06] MEDS: ATORVASTATIN CALCIUM 10 MG TABLET PO SCH (21:13)
[2019-11-07] MEDS: IPRATROPIUM/ALBUTEROL 0.5-2.5 MG/3 ML AMPUL NEB PRN ×2 (05:48→11:38)
[2019-11-07] MEDS: LEVOTHYROXINE SODIUM 0.075 MG TABLET PO SCH (06:10)
[2019-11-07] MEDS: GUAIFENESIN SYRP 200 MG/10 ML UDC PO PRN ×2 (06:10→19:30)
[2019-11-07] MEDS: PANTOPRAZOLE SODIUM 20 MG TABLET.DR PO SCH (06:10)
[2019-11-07] MEDS: IBUPROFEN 800 MG TABLET PO PRN ×3 (06:10→19:30)
[2019-11-07] MEDS: LEVOTHYROXINE SODIUM 0.1 MG TABLET PO SCH (06:11)
[2019-11-07] MEDS: NORMAL SALINE 1000 ML 1,000 ML IV PRN ×2 (06:15→19:29)
[2019-11-07] MEDS: MULTIVITAMIN TABLET PO SCH (09:26)
[2019-11-07] MEDS: LAMOTRIGINE 100 MG TABLET PO SCH ×2 (09:26→21:09)
[2019-11-07] MEDS: DOCUSATE SODIUM 100 MG CAPSULE PO SCH ×2 (09:26→18:52)
[2019-11-07] MEDS: CEFTRIAXONE 1 GM/D5W RTU 1 GM/50 ML RTUPB IV SCH (09:27)
[2019-11-07] MEDS: ENOXAPARIN SODIUM INJ 40 MG/0.4 ML DISP.SYRIN SUBCUT SCH (09:28)
[2019-11-07] MEDS: AZITHROMYCIN 500 MG in DEXTROSE 5%-WATER 250 ML IV SCH (10:28)
--- NOTE | 2019-11-07 13:32 | PDOC PROGRESS REPORT ---
Subjective Progress Note for:: 11/07/19 Reason For Visit: AUTISM,PNEUMONIA,HYPOXIA,BODY ACHES Pneumonia, autism, hypoxia Physical Exam Vital Signs: Temp Pulse Resp BP Pulse Ox 98.0 F 105 H 22 H 97/59 L 88 L 11/07/19 10:20 11/07/19 11:38 11/07/19 11:38 11/07/19 10:20 11/07/19 11:38 Intake & Output 11/06/19 11/07/19 11/08/19 06:59 06:59 06:59 Intake Total 2050 3820 Output Total 650 Balance 1400 3820 Weight 100 kg 103.1 kg General appearance: PRESENT: no acute distress, other - Patient and I talked for about 15 minutes this morning with no signs of respiratory distress Respiratory exam: PRESENT: rhonchi - Scattered Cardiovascular exam: PRESENT: RRR. ABSENT: diastolic murmur, rubs, systolic murmur Neurological exam: PRESENT: alert, awake, oriented to person, oriented to situation, other - Baseline for his autism Psychiatric exam: PRESENT: other - Baseline for his autism Results Laboratory Results: 11/06/19 12:36 11/06/19 12:36 11/06/19 12:36 Sodium 133.2 L Potassium 4.2 Chloride 97 L Carbon Dioxide 28 Anion Gap 8 BUN 13 Creatinine 0.63 Est GFR ( Amer) > 60 Glucose 124 H Calcium 8.4 11/05/19 10:47 Throat Throat Culture - Final NORMAL ROBERT Impressions: Shoulder X-Ray 11/05/19 00:00 IMPRESSION: Widening of the right AC joint as described. No fracture. Chest X-Ray 11/05/19 10:29 IMPRESSION: Findings most likely represent left lower lobe pneumonia and a small effusion. Follow-up films are recommended to exclude underlying mass lesion. Assessment and Plan - Diagnosis (1) Autism Is this a current diagnosis for this admission?: Yes (2) Bacterial pneumonia Is this a current diagnosis for this admission?: Yes (3) Hypoxia Is this a current diagnosis for this admission?: Yes - Plan Summary Summary: 11/05/2019 Start patient on IV fluids, broad-spectrum IV antibiotics. I have actually called the lab and spoken to them about our flu swabs. Lab inform me that they are very specific and sensitive in about 95% accurate. Also that the ED staff is been trained on how to take a specimen, therefore I doubt that the patient has the flu. Lactic acid is pending, serial labs will be drawn 11/06/2019 Temperature this morning 101.6, heart rate anywhere from 103-124 Blood pressure 127/71 and O2 sat 92-95 on 5 L we will try to wean this down to 3 White blood cell count still normal 4200 Lactic acid level yesterday was 2.0 Glucose levels are running a little higher we will check a hemoglobin A1c Blood cultures and throat cultures are pending Patient's fever is being treated with Motrin 800 mg. Currently on IV Zithromax and IV Rocephin Clinically patient appears improved 11/07/2019 Last night at around 2300 hrs. patient had a temperature of 102.8, since then his temperature is been 98 Patient's pulse is been anywhere from 90-108, blood pressures remained stable Admission his O2 sats were in the low 90s and actually 86 and 88 on nasal cannula but requiring 5 L Even now patient is requiring 6 or 7 L of nasal cannula oxygen to maintain his sats, though he does not appear to be in any respiratory distress Patient's wBC from yesterday showed a leukopenia at 2.5 though he was admitted 2 days earlier with a white count of 8.2 Patient's platelets are remaining stable. I am going to repeat his lab work today. I am also going to repeat a portable chest x-ray today due to his oxygen requirements I have ordered a d-dimer as well. I will consider this information with his chest x-ray Clinically patient does not look septic or toxic or in distress - Time Time Spent with patient: 25-34 minutes
--- NOTE | 2019-11-07 14:31 | RADIOLOGY REPORT (SQ) ---
EXAM DESCRIPTION: CHEST SINGLE VIEW COMPLETED DATE/TIME: 11/07/2019 2:20 pm REASON FOR STUDY: Hypoxia, pneumonia COMPARISON: None. EXAM PARAMETERS: NUMBER OF VIEWS: One view. TECHNIQUE: An AP view of the chest was obtained. RADIATION DOSE: NA LIMITATIONS: None. FINDINGS: LUNGS AND PLEURA: Increased pleural and parenchymal opacities in the inferior left hemitho rax that obscure the contour of the left hemidiaphragm and blunt the left lateral costophrenic sulcus . The patchy opacities in the inferior right hemithorax are unchanged. There is no pneumothorax. MEDIASTINUM AND HILAR STRUCTURES: No mediastinal or hilar contour abnormality. HEART AND VASCULAR STRUCTURES: The cardiac silhouette and pulmonary vasculature are within normal pederson its. BONES: No acute findings. HARDWARE: None in the chest. OTHER: No other finding. IMPRESSION: Increased pleural and parenchymal opacities in the inferior left hemithorax that could r epresent a combination of pleural fluid, atelectasis and/or pneumonia. TECHNICAL DOCUMENTATION: JOB ID: [id number] [employer]- All Rights Reserved Reading location - IP/workstation name: [email or web address]
[2019-11-07 14:59] LABS: HEMATOCRIT 36.7 % (37.9-51.0); HEMOGLOBIN 12.7 g/dL (13.5-17.0); MEAN CORPUSCULAR HEMOGLOBIN 33.3 pg (27.0-33.4); MEAN CORPUSCULAR HGB CONC 34.5 g/dL (32.0-36.0); MEAN CORPUSCULAR VOLUME 96 fl (80-97); PLATELET COUNT 142 10^3/uL (150-450); RED CELL DISTRIBUTION WIDTH 13.3 % (11.5-14.0); WHITE BLOOD COUNT 3.1 10^3/uL (4.0-10.5)
[2019-11-07 15:10] LABS: ANION GAP 11 (5-19); BLOOD UREA NITROGEN 9 mg/dL (7-20); CALCIUM 8.7 mg/dL (8.4-10.2); CARBON DIOXIDE 30 mmol/L (22-30); CHLORIDE 97 mmol/L (98-107); GLUCOSE 104 mg/dL (75-110); POTASSIUM 4.1 mmol/L (3.6-5.0)
[2019-11-07 15:53] LABS: ABSOLUTE LYMPHOCYTES# (MANUAL) 0.7 10^3/uL (0.5-4.7); ABSOLUTE MONOCYTES # (MANUAL) 0.4 10^3/uL (0.1-1.4); BASOPHILS % (MANUAL) 0 % (0-2); EOSINOPHILS % (MANUAL) 0 % (0-6); LYMPHOCYTES % (MANUAL) 23 % (13-45); MONOCYTES % (MANUAL) 14 % (3-13); RBC MORPHOLOGY COMMENT NORMO-CYTIC/CHROMIC; SEGMENTED NEUTROPHILS % (MAN) 63 % (42-78); TOTAL CELLS COUNTED 100
[2019-11-07 15:54] LABS: PLATELET COMMENT DECREASED
[2019-11-07] MEDS ORDERED: SODIUM CHLORIDE NASAL SPRAY 44 ML NASL PRN (16:00)
[2019-11-07] MEDS: IPRATROPIUM/ALBUTEROL 0.5-2.5 MG/3 ML AMPUL NEB SCH (20:55)
[2019-11-07] MEDS: DIVALPROEX SODIUM 250 MG TABLET.DR PO SCH (21:08)
[2019-11-07] MEDS: BENZTROPINE MESYLATE 1 MG TABLET PO SCH (21:08)
[2019-11-07] MEDS: ATORVASTATIN CALCIUM 10 MG TABLET PO SCH (21:08)
[2019-11-07] MEDS: ZOLPIDEM TARTRATE 5 MG TABLET PO SCH (21:09)
[2019-11-07] MEDS: OXCARBAZEPINE 150 MG TABLET PO SCH (21:10)
[2019-11-07] MEDS: QUETIAPINE FUMARATE 100 MG TABLET PO SCH (21:10)
[2019-11-08] MEDS: GUAIFENESIN SYRP 200 MG/10 ML UDC PO PRN (05:42)
[2019-11-08] MEDS: IBUPROFEN 800 MG TABLET PO PRN ×2 (05:42→19:06)
[2019-11-08] MEDS: PANTOPRAZOLE SODIUM 20 MG TABLET.DR PO SCH (05:43)
[2019-11-08] MEDS: LEVOTHYROXINE SODIUM 0.1 MG TABLET PO SCH (05:43)
[2019-11-08] MEDS: LEVOTHYROXINE SODIUM 0.075 MG TABLET PO SCH (05:43)
[2019-11-08] MEDS: NORMAL SALINE 1000 ML 1,000 ML IV PRN ×2 (05:43→18:22)
[2019-11-08] MEDS ORDERED: LEVALBUTEROL HCL NEB 1.25 MG/3 ML AMPUL NEB ONE (05:48)
[2019-11-08] MEDS ORDERED: LEVALBUTEROL HCL NEB 1.25 MG/3 ML AMPUL NEB PRN (05:58)
[2019-11-08] MEDS: IPRATROPIUM/ALBUTEROL 0.5-2.5 MG/3 ML AMPUL NEB SCH ×4 (08:58→20:17)
[2019-11-08] MEDS: LAMOTRIGINE 100 MG TABLET PO SCH ×2 (10:22→21:04)
[2019-11-08] MEDS: MULTIVITAMIN TABLET PO SCH (10:22)
[2019-11-08] MEDS: ENOXAPARIN SODIUM INJ 40 MG/0.4 ML DISP.SYRIN SUBCUT SCH (10:24)
[2019-11-08] MEDS: DOCUSATE SODIUM 100 MG CAPSULE PO SCH ×2 (10:25→18:12)
[2019-11-08] MEDS: CEFTRIAXONE 1 GM/D5W RTU 1 GM/50 ML RTUPB IV SCH (10:26)
--- NOTE | 2019-11-08 11:27 | RADIOLOGY REPORT (SQ) ---
EXAM DESCRIPTION: CTA CHEST COMPLETED DATE/TIME: 11/08/2019 11:01 am REASON FOR STUDY: Marie, VERONICA COMPARISON: Chest films 11/07/2019, 11/05/2019, 01/13/2017 TECHNIQUE: CT scan of the chest performed using helical scanning technique with dynamic intravenous contrast injection. Images reviewed with lung, soft tissue and bone windows. Reconstructed coronal and sagittal MPR images reviewed. Additional 3 dimensional post-processing performed to develop Maximal Intensity Projection images ([place] P). All images stored on PACS. All CT scanners at this facility use dose modulation, iterative reconstruction, and/or weight based d osing when appropriate to reduce radiation dose to as low as reasonably achievable (ALARA). [facility]: Dose Right [facility]: CareDose [facility]: Dose Right [facility]: Teradose 4D [facility]: TI[employer] Software CONTRAST TYPE AND DOSE: contrast/concentration: Isovue 350.00 mg/ml; Total Contrast Delivered: 70.0 ml; Total Saline Delivered: 80.0 ml Contrast bolus adequate for pulmonary arteries and aorta. RENAL FUNCTION: None required. The patient is less than 50 years old. RADIATION DOSE: CT Rad equipment meets quality standard of care and radiation dose reduction techniq ues were employed. CTDIvol: 9.9 - 16.6 mGy. DLP: 614 mGy-cm. . LIMITATIONS: None. FINDINGS: LUNGS AND PLEURA: There is very dense lung parenchymal consolidation from pneumonia in the left upper lobe, and bilateral lower lobes. Patchy airspace disease is present in the right upper l obe. There is trace pleural fluid bilaterally. No pneumothorax. Probably benign 7 mm nodule at the intersection of the right major and minor fissures on axial image 63/130. AORTA AND GREAT VESSELS: No aneurysm or dissection. HEART: No pericardial effusion. No significant coronary artery calcifications. PULMONARY ARTERIES: No emboli visualized in the main pulmonary arteries or the segmental branches. HILAR AND MEDIASTINAL STRUCTURES: Multiple small lymph nodes likely reactive along the mediastinum an d quinn. HARDWARE: None in the chest. UPPER ABDOMEN: Subcentimeter calcification right lobe liver could be related to a hemangioma or other small liver mass. THYROID AND OTHER SOFT TISSUES: Bilateral gynecomastia BONES: No acute or significant finding. 3D MIPS: Confirm above findings. OTHER: No other significant finding. IMPRESSION: No CT angio evidence of acute pulmonary emboli or thoracic aortic dissection Very dense pneumonia multifocal. No significant pleural effusions. COMMENT: Quality ID # [id number]: Final reports with documentation of one or more dose reduction techniques (e.g., Automated exposure control, adjustment of the mA and/or kV according to patient size, use of iterative reconstruction technique) TECHNICAL DOCUMENTATION: JOB ID: [id number] [employer]- All Rights Reserved Reading location - IP/workstation name: [email or web address]
[2019-11-08] MEDS: AZITHROMYCIN 500 MG in DEXTROSE 5%-WATER 250 ML IV SCH (11:57)
[2019-11-08] MEDS: METHYLPREDNISOLONE INJ 40 MG/1 ML SDV IV SCH ×2 (14:54→21:05)
[2019-11-08] MEDS ORDERED: LORAZEPAM INJ 2 MG/1 ML VIAL ONE ×2 (15:22→16:33)
[2019-11-08] MEDS ORDERED: LORAZEPAM INJ 2 MG/1 ML VIAL IV PRN (15:43)
[2019-11-08] MEDS ORDERED: VANCOMYCIN HCL 0 MG in DEXTROSE 5%-WATER 250 ML IV NR (15:45)
[2019-11-08] MEDS ORDERED: METHYLPREDNISOLONE INJ 125 MG/2 ML SDV IV ONE (16:30)
[2019-11-08] MEDS: VANCOMYCIN HCL 1,500 MG in DEXTROSE 5%-WATER 250 ML IV SCH (18:07)
[2019-11-08 18:08] LABS: VENOUS BLOOD BASE EXCESS 6.1 mmol/L; VENOUS BLOOD HCO3 30.5 mmol/L (20-32); VENOUS BLOOD PCO2 43.1 mmHg (35-63); VENOUS BLOOD PH 7.47 (7.30-7.42)
[2019-11-08] MEDS ORDERED: LORAZEPAM INJ 2 MG/1 ML VIAL IV ONE (18:15)
[2019-11-08] MEDS: DIVALPROEX SODIUM 250 MG TABLET.DR PO SCH (21:03)
[2019-11-08] MEDS: ATORVASTATIN CALCIUM 10 MG TABLET PO SCH (21:04)
[2019-11-08] MEDS: QUETIAPINE FUMARATE 100 MG TABLET PO SCH (21:04)
[2019-11-08] MEDS: OXCARBAZEPINE 150 MG TABLET PO SCH (21:05)
[2019-11-08] MEDS: BENZTROPINE MESYLATE 1 MG TABLET PO SCH (21:05)
[2019-11-08] MEDS: ZOLPIDEM TARTRATE 5 MG TABLET PO SCH (21:05)
--- NOTE | 2019-11-08 22:32 | Progress Note ---
Provider Note Provider Note: Critical care note: 11/08/2019 Critical care onset: 21:09 Critical care issue: Hypoxia I was asked by the patient's nurse to evaluate his hypoxia. The patient has psychiatric issues and is not using his oxygen continuously and refuses to use any type of noninvasive airway pressure device. He has been using nebulizer treatments but despite this has frequent paroxysmal coughing events which caused him to become extremely dyspneic and tachypneic. Patient's O2 sat monitor is showing constant hypoxia with O2 sats in the 80's. On my evaluation with the patient I noted that he was more tachypneic during the initial time that I was in the room talking with him but after a short time he seemed to relax and his respiratory rate decreased from 28-30 down to 20-22. Over this course of time his ability to speak was markedly improved initially he was speaking in 1 or 2 word sentences but by the end of our conversation he was able to speak in 4-5 word sentences and seemed to be more comfortable. He was noted to be providing some self PEEP with grunting after every second or third respiration. His respirations were noted to be shallow but he did not appear to have any pain with respiration. He also denied pain with respiration when asked. On examination he was found to have coarse rales most noticeable in the left upper chest with less prominent coarse rales in the bilateral bases and scattered coarse rales in the right upper chest. No rhonchi were detected on auscultation. Air movement was judged to be fair and there was no prolongation of the expiratory phase nor presence of wheezes. A review of the patient's laboratory and radiographic findings was conducted along with a review of the osvaldo mcmullen's clinical status as observed by his nurse and his respiratory therapist. I feel the patient may benefit from more frequent nebulizer treatments and to this end I have ordered Xopenex 0.63 mg every 2 hours while awake. Additionally the patient would probably benefit from an inhaled mucolytic such as Mucomyst and as such this was ordered twice daily. I also feel that the patient does not have bronchospasm and as such probably does not require ipratropium therapy thus, this has been discontinued. Critical care end time: 22:31 Total critical care time: 29 minutes
[2019-11-09] MEDS: LEVALBUTEROL HCL NEB 0.63 MG/3 ML AMPUL NEB SCH ×5 (00:02→08:03)
[2019-11-09] MEDS: NORMAL SALINE 1000 ML 1,000 ML IV PRN ×2 (00:14→19:06)
[2019-11-09] MEDS: LORAZEPAM INJ 2 MG/1 ML VIAL IV SCH ×4 (01:47→18:58)
[2019-11-09] MEDS: VANCOMYCIN HCL 1,500 MG in DEXTROSE 5%-WATER 250 ML IV SCH ×3 (04:45→18:59)
[2019-11-09] MEDS: METHYLPREDNISOLONE INJ 40 MG/1 ML SDV IV SCH ×4 (04:45→21:21)
[2019-11-09] MEDS: LEVOTHYROXINE SODIUM 0.1 MG TABLET PO SCH (06:50)
[2019-11-09] MEDS: GUAIFENESIN SYRP 200 MG/10 ML UDC PO PRN ×2 (06:50→15:19)
[2019-11-09] MEDS: PANTOPRAZOLE SODIUM 20 MG TABLET.DR PO SCH (06:50)
[2019-11-09] MEDS: IBUPROFEN 800 MG TABLET PO PRN ×2 (06:50→15:50)
[2019-11-09] MEDS: LEVOTHYROXINE SODIUM 0.075 MG TABLET PO SCH (06:50)
[2019-11-09] MEDS ORDERED: ACETYLCYSTEINE 20% SOLN 800 MG/4 ML VIAL.NEB NEB SCH (08:00)
[2019-11-09] MEDS: ENOXAPARIN SODIUM INJ 40 MG/0.4 ML DISP.SYRIN SUBCUT SCH (09:18)
[2019-11-09] MEDS: CEFTRIAXONE 1 GM/D5W RTU 1 GM/50 ML RTUPB IV SCH (09:19)
[2019-11-09 09:46] LABS: ARTERIAL BLOOD BASE EXCESS 5.8 mmol/L; ARTERIAL BLOOD HCO3 31.9 mmol/L (20-24); ARTERIAL BLOOD O2 SATURATION 95.8 % (94-98); ARTERIAL BLOOD PCO2 53.2 mmHg (35-45); ARTERIAL BLOOD PO2 81.7 mmHg (80-100); ARTERIAL BLOOD TOTAL CO2 33.6 mmol/L (23-27)
[2019-11-09 09:47] LABS: ARTERIAL BLOOD FIO2 100%
[2019-11-09] MEDS: DOCUSATE SODIUM 100 MG CAPSULE PO SCH ×2 (10:25→18:59)
[2019-11-09] MEDS: MULTIVITAMIN TABLET PO SCH (10:25)
[2019-11-09] MEDS: LAMOTRIGINE 100 MG TABLET PO SCH ×2 (10:25→21:22)
[2019-11-09] MEDS ORDERED: LEVALBUTEROL HCL NEB 0.63 MG/3 ML AMPUL NEB SCH (12:00)
[2019-11-09] MEDS: IPRATROPIUM/ALBUTEROL 0.5-2.5 MG/3 ML AMPUL NEB SCH ×3 (15:50→23:45)
[2019-11-09 15:57] LABS: APPEARANCE,URINE SLIGHTLY-CLOUDY; BILIRUBIN,URINE NEGATIVE (NEGATIVE); COLOR,URINE YELLOW; GLUCOSE, URINE 50 mg/dL (NEGATIVE); KETONES,URINE NEGATIVE (NEGATIVE); LEUKOCYTE ESTERASE,URINE NEGATIVE (NEGATIVE); NITRITE,URINE NEGATIVE (NEGATIVE); PROTEIN,URINE 30 mg/dL (NEGATIVE); UROBILINOGEN,URINE NEGATIVE mg/dL (<2.0)
--- NOTE | 2019-11-09 17:13 | PDOC PROGRESS REPORT ---
Subjective Progress Note for:: 11/09/19 Reason For Visit: AUTISM,PNEUMONIA,HYPOXIA,BODY ACHES 11/09/2019 Pneumonia, severe autism, hypoxia, Physical Exam Vital Signs: Temp Pulse Resp BP Pulse Ox 97.7 F 88 32 H 126/75 H 93 11/09/19 11:00 11/09/19 11:49 11/09/19 11:49 11/09/19 11:00 11/09/19 11:49 Intake & Output 11/08/19 11/09/19 11/10/19 06:59 06:59 06:59 Intake Total 4183 3547 300 Output Total 725 Balance 4183 2822 300 Weight 103.3 kg 104 kg General appearance: PRESENT: mild distress, other - Secondary to autism and hypoxia Respiratory exam: PRESENT: decreased breath sounds, rhonchi - Scattered about his entire chest Cardiovascular exam: PRESENT: tachycardia Neurological exam: PRESENT: alert, awake, oriented to person, oriented to place, oriented to time, oriented to situation, CN II-XII grossly intact. ABSENT: motor sensory deficit Psychiatric exam: PRESENT: agitated, anxious - Patient is at least able to wear his BiPAP with Ativan Results Laboratory Results: 11/07/19 13:59 11/07/19 13:59 11/08/19 11/08/19 11/09/19 17:30 17:30 09:25 Carbonic Acid Cancelled 1.60 H HCO3/H2CO3 Ratio Cancelled 19:1 ABG pH Cancelled 7.40 ABG pCO2 Cancelled 53.2 H ABG pO2 Cancelled 81.7 ABG HCO3 Cancelled 31.9 H ABG O2 Saturation Cancelled 95.8 ABG Base Excess Cancelled 5.8 VBG pH 7.47 H VBG pCO2 43.1 VBG HCO3 30.5 VBG Base Excess 6.1 FiO2 Cancelled 100% Urine Color Urine Appearance Urine pH Ur Specific [place] Urine Protein Urine Glucose (UA) Urine Ketones Urine Blood Urine Nitrite Ur Leukocyte Esterase Urine WBC (Auto) Urine RBC (Auto) 11/09/19 15:25 Carbonic Acid HCO3/H2CO3 Ratio ABG pH ABG pCO2 ABG pO2 ABG HCO3 ABG O2 Saturation ABG Base Excess VBG pH VBG pCO2 VBG HCO3 VBG Base Excess FiO2 Urine Color YELLOW Urine Appearance SLIGHTLY-CLOUDY Urine pH 6.0 Ur Specific [place] 1.020 Urine Protein 30 H Urine Glucose (UA) 50 H Urine Ketones NEGATIVE Urine Blood NEGATIVE Urine Nitrite NEGATIVE Ur Leukocyte Esterase NEGATIVE Urine WBC (Auto) 3 Urine RBC (Auto) 1 Impressions: Shoulder X-Ray 11/05/19 00:00 IMPRESSION: Widening of the right AC joint as described. No fracture. Chest X-Ray 11/07/19 00:00 IMPRESSION: Increased pleural and parenchymal opacities in the inferior left hemithorax that could represent a combination of pleural fluid, atelectasis and/or pneumonia. Chest/Abdomen CTA 11/08/19 00:00 IMPRESSION: No CT angio evidence of acute pulmonary emboli or thoracic aortic dissection Very dense pneumonia multifocal. No significant pleural effusions. Assessment and Plan - Diagnosis (1) Autism Is this a current diagnosis for this admission?: Yes (2) Bacterial pneumonia Is this a current diagnosis for this admission?: Yes (3) Hypoxia Is this a current diagnosis for this admission?: Yes - Plan Summary Summary: 11/05/2019 Start patient on IV fluids, broad-spectrum IV antibiotics. I have actually called the lab and spoken to them about our flu swabs. Lab inform me that they are very specific and sensitive in about 95% accurate. Also that the ED staff is been trained on how to take a specimen, therefore I doubt that the patient has the flu. Lactic acid is pending, serial labs will be drawn 11/06/2019 Temperature this morning 101.6, heart rate anywhere from 103-124 Blood pressure 127/71 and O2 sat 92-95 on 5 L we will try to wean this down to 3 White blood cell count still normal 4200 Lactic acid level yesterday was 2.0 Glucose levels are running a little higher we will check a hemoglobin A1c Blood cultures and throat cultures are pending Patient's fever is being treated with Motrin 800 mg. Currently on IV Zithromax and IV Rocephin Clinically patient appears improved 11/07/2019 Last night at around 2300 hrs. patient had a temperature of 102.8, since then his temperature is been 98 Patient's pulse is been anywhere from 90-108, blood pressures remained stable Admission his O2 sats were in the low 90s and actually 86 and 88 on nasal cannula but requiring 5 L Even now patient is requiring 6 or 7 L of nasal cannula oxygen to maintain his sats, though he does not appear to be in any respiratory distress Patient's wBC from yesterday showed a leukopenia at 2.5 though he was admitted 2 days earlier with a white count of 8.2 Patient's platelets are remaining stable. I am going to repeat his lab work today. I am also going to repeat a portable chest x-ray today due to his oxygen requirements I have ordered a d-dimer as well. I will consider this information with his chest x-ray Clinically patient does not look septic or toxic or in distress 11/08/2019 Temperature 98.2, heart rate in the low 90s, pressure 104/64, durations between 20 and 24 Oxygen saturations are hovering between 89 and 91 on a partial nonrebreather with a rate of about 12-14 Patient's white count the day before was 3.1 platelets 142,000 Electrolytes are grossly normal CT angiogram of the chest done due to an elevated d-dimer shows no evidence of pulmonary embolism however pneumonia is worse with a very dense pneumonia multifocal Continue with IV antibiotics Rocephin day #3 and vancomycin day #2 - Time Time Spent with patient: 25-34 minutes
--- NOTE | 2019-11-09 17:21 | PDOC PROGRESS REPORT ---
Subjective Progress Note for:: 11/09/19 Reason For Visit: AUTISM,PNEUMONIA,HYPOXIA,BODY ACHES 11/09/2019 Worsening pneumonia, hypoxia in the 80s, severe autism Physical Exam Vital Signs: Temp Pulse Resp BP Pulse Ox 97.7 F 79 29 H 126/75 H 95 11/09/19 11:00 11/09/19 15:50 11/09/19 15:50 11/09/19 11:00 11/09/19 15:50 Intake & Output 11/08/19 11/09/19 11/10/19 06:59 06:59 06:59 Intake Total 4183 3547 300 Output Total 725 Balance 4183 2822 300 Weight 103.3 kg 104 kg General appearance: PRESENT: mild distress Respiratory exam: PRESENT: decreased breath sounds, rhonchi Cardiovascular exam: PRESENT: tachycardia Neurological exam: PRESENT: altered, other - Baseline for his autism Psychiatric exam: PRESENT: unusual affect - Baseline for his autism Results Laboratory Results: 11/07/19 13:59 11/07/19 13:59 11/08/19 11/08/19 11/09/19 17:30 17:30 09:25 Carbonic Acid Cancelled 1.60 H HCO3/H2CO3 Ratio Cancelled 19:1 ABG pH Cancelled 7.40 ABG pCO2 Cancelled 53.2 H ABG pO2 Cancelled 81.7 ABG HCO3 Cancelled 31.9 H ABG O2 Saturation Cancelled 95.8 ABG Base Excess Cancelled 5.8 VBG pH 7.47 H VBG pCO2 43.1 VBG HCO3 30.5 VBG Base Excess 6.1 FiO2 Cancelled 100% Urine Color Urine Appearance Urine pH Ur Specific [place] Urine Protein Urine Glucose (UA) Urine Ketones Urine Blood Urine Nitrite Ur Leukocyte Esterase Urine WBC (Auto) Urine RBC (Auto) 11/09/19 15:25 Carbonic Acid HCO3/H2CO3 Ratio ABG pH ABG pCO2 ABG pO2 ABG HCO3 ABG O2 Saturation ABG Base Excess VBG pH VBG pCO2 VBG HCO3 VBG Base Excess FiO2 Urine Color YELLOW Urine Appearance SLIGHTLY-CLOUDY Urine pH 6.0 Ur Specific [place] 1.020 Urine Protein 30 H Urine Glucose (UA) 50 H Urine Ketones NEGATIVE Urine Blood NEGATIVE Urine Nitrite NEGATIVE Ur Leukocyte Esterase NEGATIVE Urine WBC (Auto) 3 Urine RBC (Auto) 1 Impressions: Shoulder X-Ray 11/05/19 00:00 IMPRESSION: Widening of the right AC joint as described. No fracture. Chest X-Ray 11/07/19 00:00 IMPRESSION: Increased pleural and parenchymal opacities in the inferior left hemithorax that could represent a combination of pleural fluid, atelectasis and/or pneumonia. Chest/Abdomen CTA 11/08/19 00:00 IMPRESSION: No CT angio evidence of acute pulmonary emboli or thoracic aortic dissection Very dense pneumonia multifocal. No significant pleural effusions. Assessment and Plan - Diagnosis (1) Autism Is this a current diagnosis for this admission?: Yes (2) Bacterial pneumonia Is this a current diagnosis for this admission?: Yes (3) Hypoxia Is this a current diagnosis for this admission?: Yes - Plan Summary Summary: 11/05/2019 Start patient on IV fluids, broad-spectrum IV antibiotics. I have actually called the lab and spoken to them about our flu swabs. Lab inform me that they are very specific and sensitive in about 95% accurate. Also that the ED staff is been trained on how to take a specimen, therefore I doubt that the patient has the flu. Lactic acid is pending, serial labs will be drawn 11/06/2019 Temperature this morning 101.6, heart rate anywhere from 103-124 Blood pressure 127/71 and O2 sat 92-95 on 5 L we will try to wean this down to 3 White blood cell count still normal 4200 Lactic acid level yesterday was 2.0 Glucose levels are running a little higher we will check a hemoglobin A1c Blood cultures and throat cultures are pending Patient's fever is being treated with Motrin 800 mg. Currently on IV Zithromax and IV Rocephin Clinically patient appears improved 11/07/2019 Last night at around 2300 hrs. patient had a temperature of 102.8, since then his temperature is been 98 Patient's pulse is been anywhere from 90-108, blood pressures remained stable Admission his O2 sats were in the low 90s and actually 86 and 88 on nasal cannula but requiring 5 L Even now patient is requiring 6 or 7 L of nasal cannula oxygen to maintain his sats, though he does not appear to be in any respiratory distress Patient's wBC from yesterday showed a leukopenia at 2.5 though he was admitted 2 days earlier with a white count of 8.2 Patient's platelets are remaining stable. I am going to repeat his lab work today. I am also going to repeat a portable chest x-ray today due to his oxygen requirements I have ordered a d-dimer as well. I will consider this information with his chest x-ray Clinically patient does not look septic or toxic or in distress 11/08/2019 Temperature 98.2, heart rate in the low 90s, pressure 104/64, durations between 20 and 24 Oxygen saturations are hovering between 89 and 91 on a partial nonrebreather with a rate of about 12-14 Patient's white count the day before was 3.1 platelets 142,000 Electrolytes are grossly normal CT angiogram of the chest done due to an elevated d-dimer shows no evidence of pulmonary embolism however pneumonia is worse with a very dense pneumonia multifocal Continue with IV antibiotics Rocephin day #3 and vancomycin day #2 11/09/2019 Temp 97 7 pulse rates acutely improved in the low 80s Pressure stable 126/75 respirations rates anywhere from 17 up to 32 averaging around 28 oxygen saturations are as low as 83 but currently for the last several hours have been in the mid 90s Patient is finally tolerating his BiPAP Rechecking labs in the morning I had the ICU project assistant come by and see the patient this morning who recommended doing a blood gas, arterial blood gas showed a pH of 7.40, PCO2 of 53, PO2 of 81 ,bicarb 31, saturation 95% The project assistant felt that the patient was stable to stay on the floor but that if he worsened he would be glad to accept him in the ICU and at that time would intubate the patient. Spoke to the patient's primary caregiver this afternoon and explained all this to her. She was appreciative of our care and understood the seriousness of his problem and the fact that his pneumonia was worsening as a result of the difficulty keeping the BiPAP on the patient keeping him oxygenated due to his autism. - Time Time Spent with patient: 35 or more minutes
--- NOTE | 2019-11-09 19:12 | Progress Note ---
Provider Note Provider Note: Asked to evaluate patient for possible ICU placement and possible ARDS. He is a 29 yo autistic man from a detention with a fairly dense L lower lobe CAP. He has not slept much overnight. This may explain his sleepiness. An AGB to r/o hypercarbia showed a pH of 7.4 and PCO2 53. Fairly normal. His CXR does not show fluffy infiltrates. He is not in ARDS at this point. His color is good and he alexys fairly clear lungs with some L rhonchi and crackles. He does not at this time need an ICU placement. Should he become hypoxic or hypercarbic feel free to reconsult. Right now stable on bipap.
[2019-11-09] MEDS: OXCARBAZEPINE 150 MG TABLET PO SCH (21:21)
[2019-11-09] MEDS: QUETIAPINE FUMARATE 100 MG TABLET PO SCH (21:22)
[2019-11-09] MEDS: ATORVASTATIN CALCIUM 10 MG TABLET PO SCH (21:22)
[2019-11-09] MEDS: ZOLPIDEM TARTRATE 5 MG TABLET PO SCH (21:23)
[2019-11-09] MEDS: BENZTROPINE MESYLATE 1 MG TABLET PO SCH (21:23)
[2019-11-09] MEDS: DIVALPROEX SODIUM 250 MG TABLET.DR PO SCH (21:23)
[2019-11-10] MEDS: LORAZEPAM INJ 2 MG/1 ML VIAL IV SCH ×4 (00:57→17:27)
[2019-11-10] MEDS: NORMAL SALINE 1000 ML 1,000 ML IV PRN ×2 (01:23→12:00)
[2019-11-10] MEDS: VANCOMYCIN HCL 1,500 MG in DEXTROSE 5%-WATER 250 ML IV SCH (02:50)
[2019-11-10] MEDS: METHYLPREDNISOLONE INJ 40 MG/1 ML SDV IV SCH ×4 (02:50→21:27)
[2019-11-10] MEDS: IPRATROPIUM/ALBUTEROL 0.5-2.5 MG/3 ML AMPUL NEB SCH ×5 (04:08→20:18)
[2019-11-10] MEDS: LEVOTHYROXINE SODIUM 0.075 MG TABLET PO SCH (06:22)
[2019-11-10] MEDS: PANTOPRAZOLE SODIUM 20 MG TABLET.DR PO SCH (06:22)
[2019-11-10] MEDS: LEVOTHYROXINE SODIUM 0.1 MG TABLET PO SCH (06:22)
[2019-11-10 07:49] LABS: HEMATOCRIT 34.6 % (37.9-51.0); MEAN CORPUSCULAR HEMOGLOBIN 33.3 pg (27.0-33.4); MEAN CORPUSCULAR HGB CONC 34.6 g/dL (32.0-36.0); MEAN CORPUSCULAR VOLUME 96 fl (80-97); WHITE BLOOD COUNT 5.5 10^3/uL (4.0-10.5)
[2019-11-10 08:13] LABS: ABSOLUTE LYMPHOCYTES# (MANUAL) 0.6 10^3/uL (0.5-4.7); ABSOLUTE MONOCYTES # (MANUAL) 0.7 10^3/uL (0.1-1.4); BAND NEUTROPHILS % (MANUAL) 3 % (3-5); BASOPHILS % (MANUAL) 0 % (0-2); EOSINOPHILS % (MANUAL) 0 % (0-6); LYMPHOCYTES % (MANUAL) 10 % (13-45); METAMYELOCYTES % (MANUAL) 1 % (0-1); MONOCYTES % (MANUAL) 13 % (3-13); SEGMENTED NEUTROPHILS % (MAN) 70 % (42-78); TOTAL CELLS COUNTED 100
[2019-11-10 08:14] LABS: ANISOCYTOSIS SLIGHT; POLYCHROMASIA SLIGHT; TOXIC VACUOLATION PRESENT
[2019-11-10 08:15] LABS: MYELOCYTES % (MANUAL) 2 % (0); PLATELET CLUMPS PRESENT; PLATELET COMMENT ADEQUATE; PLATELET COUNT 237 10^3/uL (150-450)
[2019-11-10 09:18] LABS: ANION GAP 9 (5-19); BLOOD UREA NITROGEN 12 mg/dL (7-20); CALCIUM 9.1 mg/dL (8.4-10.2); CARBON DIOXIDE 34 mmol/L (22-30); CHLORIDE 98 mmol/L (98-107); GLUCOSE 139 mg/dL (75-110); POTASSIUM 4.9 mmol/L (3.6-5.0)
[2019-11-10] MEDS: VANCOMYCIN HCL 2,000 MG in DEXTROSE 5%-WATER 500 ML IV SCH ×2 (10:00→17:30)
[2019-11-10] MEDS: LAMOTRIGINE 100 MG TABLET PO SCH ×2 (10:21→21:28)
[2019-11-10] MEDS: DOCUSATE SODIUM 100 MG CAPSULE PO SCH ×2 (10:21→17:27)
[2019-11-10] MEDS: MULTIVITAMIN TABLET PO SCH (10:22)
[2019-11-10] MEDS: ENOXAPARIN SODIUM INJ 40 MG/0.4 ML DISP.SYRIN SUBCUT SCH (10:26)
[2019-11-10 10:47] LABS: ARTERIAL BLOOD BASE EXCESS 10.4 mmol/L; ARTERIAL BLOOD PCO2 53.2 mmHg (35-45); ARTERIAL BLOOD PH 7.45 (7.35-7.45); ARTERIAL BLOOD PO2 106.4 mmHg (80-100); ARTERIAL BLOOD TOTAL CO2 37.6 mmol/L (23-27)
[2019-11-10 10:49] LABS: ARTERIAL BLOOD FIO2 100
[2019-11-10] MEDS: CEFTRIAXONE 1 GM/D5W RTU 1 GM/50 ML RTUPB IV SCH (11:00)
[2019-11-10] MEDS: IBUPROFEN 800 MG TABLET PO PRN (16:05)
--- NOTE | 2019-11-10 16:17 | PDOC PROGRESS REPORT ---
Subjective Progress Note for:: 11/10/19 Reason For Visit: AUTISM,PNEUMONIA,HYPOXIA,BODY ACHES 11/10/2019 Pneumonia, autism, hypoxia, Physical Exam Vital Signs: Temp Pulse Resp BP Pulse Ox 97.8 F 77 32 H 127/78 H 96 11/10/19 11:15 11/10/19 15:54 11/10/19 15:54 11/10/19 11:15 11/10/19 15:54 Intake & Output 11/09/19 11/10/19 11/11/19 06:59 06:59 06:59 Intake Total 3547 3355 2029 Output Total 725 1150 Balance 2822 2205 2029 Weight 104 kg 105.4 kg General appearance: PRESENT: mild distress, other Respiratory exam: PRESENT: decreased breath sounds Cardiovascular exam: PRESENT: tachycardia Results Laboratory Results: 11/10/19 07:30 11/10/19 08:09 11/10/19 11/10/19 11/10/19 07:30 08:09 10:20 WBC 5.5 RBC 3.60 L Hgb 12.0 L Hct 34.6 L MCV 96 MCH 33.3 MCHC 34.6 RDW 14.0 Plt Count 237 Seg Neutrophils % Not Reportable Carbonic Acid 1.60 H HCO3/H2CO3 Ratio 22:1 ABG pH 7.45 ABG pCO2 53.2 H ABG pO2 106.4 H ABG HCO3 36.0 H ABG O2 Saturation 98.0 ABG Base Excess 10.4 FiO2 100 Sodium 140.6 Potassium 4.9 Chloride 98 Carbon Dioxide 34 H Anion Gap 9 BUN 12 Creatinine 0.55 Est GFR ( Amer) > 60 Glucose 139 H Calcium 9.1 11/05/19 13:31 Blood Blood Culture - Final NO GROWTH IN 5 DAYS 11/05/19 12:25 Blood Blood Culture - Final NO GROWTH IN 5 DAYS Impressions: Shoulder X-Ray 11/05/19 00:00 IMPRESSION: Widening of the right AC joint as described. No fracture. Chest X-Ray 11/07/19 00:00 IMPRESSION: Increased pleural and parenchymal opacities in the inferior left hemithorax that could represent a combination of pleural fluid, atelectasis and/or pneumonia. Chest/Abdomen CTA 11/08/19 00:00 IMPRESSION: No CT angio evidence of acute pulmonary emboli or thoracic aortic dissection Very dense pneumonia multifocal. No significant pleural effusions. Assessment and Plan - Diagnosis (1) Autism Is this a current diagnosis for this admission?: Yes (2) Bacterial pneumonia Is this a current diagnosis for this admission?: Yes (3) Hypoxia Is this a current diagnosis for this admission?: Yes - Plan Summary Summary: 11/05/2019 Start patient on IV fluids, broad-spectrum IV antibiotics. I have actually called the lab and spoken to them about our flu swabs. Lab inform me that they are very specific and sensitive in about 95% accurate. Also that the ED staff is been trained on how to take a specimen, therefore I doubt that the patient has the flu. Lactic acid is pending, serial labs will be drawn 11/06/2019 Temperature this morning 101.6, heart rate anywhere from 103-124 Blood pressure 127/71 and O2 sat 92-95 on 5 L we will try to wean this down to 3 White blood cell count still normal 4200 Lactic acid level yesterday was 2.0 Glucose levels are running a little higher we will check a hemoglobin A1c Blood cultures and throat cultures are pending Patient's fever is being treated with Motrin 800 mg. Currently on IV Zithromax and IV Rocephin Clinically patient appears improved 11/07/2019 Last night at around 2300 hrs. patient had a temperature of 102.8, since then his temperature is been 98 Patient's pulse is been anywhere from 90-108, blood pressures remained stable Admission his O2 sats were in the low 90s and actually 86 and 88 on nasal cannula but requiring 5 L Even now patient is requiring 6 or 7 L of nasal cannula oxygen to maintain his sats, though he does not appear to be in any respiratory distress Patient's wBC from yesterday showed a leukopenia at 2.5 though he was admitted 2 days earlier with a white count of 8.2 Patient's platelets are remaining stable. I am going to repeat his lab work today. I am also going to repeat a portable chest x-ray today due to his oxygen requirements I have ordered a d-dimer as well. I will consider this information with his chest x-ray Clinically patient does not look septic or toxic or in distress 11/08/2019 Temperature 98.2, heart rate in the low 90s, pressure 104/64, durations between 20 and 24 Oxygen saturations are hovering between 89 and 91 on a partial nonrebreather w ith a rate of about 12-14 Patient's white count the day before was 3.1 platelets 142,000 Electrolytes are grossly normal CT angiogram of the chest done due to an elevated d-dimer shows no evidence of pulmonary embolism however pneumonia is worse with a very dense pneumonia multifocal Continue with IV antibiotics Rocephin day #3 and vancomycin day #2 11/09/2019 Temp 97 7 pulse rates acutely improved in the low 80s Pressure stable 126/75 respirations rates anywhere from 17 up to 32 averaging around 28 oxygen saturations are as low as 83 but currently for the last several hours have been in the mid 90s Patient is finally tolerating his BiPAP Rechecking labs in the morning I had the ICU playground attendant come by and see the patient this morning who recommended doing a blood gas, arterial blood gas showed a pH of 7.40, PCO2 of 53, PO2 of 81 ,bicarb 31, saturation 95% The playground attendant felt that the patient was stable to stay on the floor but that if he worsened he would be glad to accept him in the ICU and at that time would intubate the patient. Spoke to the patient's primary caregiver this afternoon and explained all this to her. She was appreciative of our care and understood the seriousness of his problem and the fact that his pneumonia was worsening as a result of the difficulty keeping the BiPAP on the patient keeping him oxygenated due to his autism.
[2019-11-10] MEDS: DIVALPROEX SODIUM 250 MG TABLET.DR PO SCH (21:27)
[2019-11-10] MEDS: QUETIAPINE FUMARATE 100 MG TABLET PO SCH (21:27)
[2019-11-10] MEDS: ATORVASTATIN CALCIUM 10 MG TABLET PO SCH (21:27)
[2019-11-10] MEDS: ZOLPIDEM TARTRATE 5 MG TABLET PO SCH (21:28)
[2019-11-10] MEDS: BENZTROPINE MESYLATE 1 MG TABLET PO SCH (21:28)
[2019-11-10] MEDS: OXCARBAZEPINE 150 MG TABLET PO SCH (21:32)
[2019-11-11] MEDS: IPRATROPIUM/ALBUTEROL 0.5-2.5 MG/3 ML AMPUL NEB SCH ×6 (00:03→20:29)
[2019-11-11] MEDS: LORAZEPAM INJ 2 MG/1 ML VIAL IV SCH ×5 (00:32→23:56)
[2019-11-11] MEDS: VANCOMYCIN HCL 2,000 MG in DEXTROSE 5%-WATER 500 ML IV SCH ×2 (02:07→14:25)
[2019-11-11] MEDS: METHYLPREDNISOLONE INJ 40 MG/1 ML SDV IV SCH ×4 (02:07→22:00)
[2019-11-11] MEDS: IBUPROFEN 800 MG TABLET PO PRN (02:15)
[2019-11-11] MEDS: LEVOTHYROXINE SODIUM 0.075 MG TABLET PO SCH (05:31)
[2019-11-11] MEDS: LEVOTHYROXINE SODIUM 0.1 MG TABLET PO SCH (05:31)
[2019-11-11] MEDS: PANTOPRAZOLE SODIUM 20 MG TABLET.DR PO SCH (05:31)
[2019-11-11] MEDS: NORMAL SALINE 1000 ML 1,000 ML IV PRN (05:31)
[2019-11-11] MEDS: LAMOTRIGINE 100 MG TABLET PO SCH ×2 (10:11→22:01)
[2019-11-11] MEDS: CEFTRIAXONE 1 GM/D5W RTU 1 GM/50 ML RTUPB IV SCH (10:12)
[2019-11-11] MEDS: MULTIVITAMIN TABLET PO SCH (10:12)
[2019-11-11] MEDS: DOCUSATE SODIUM 100 MG CAPSULE PO SCH ×2 (10:12→17:59)
[2019-11-11] MEDS: ENOXAPARIN SODIUM INJ 40 MG/0.4 ML DISP.SYRIN SUBCUT SCH (10:14)
[2019-11-11 11:23] LABS: PATH REVIEW PATHOLOGIST REVIEWED
[2019-11-11 12:31] LABS: VANCOMYCIN,TROUGH 10.3 ug/mL (5.0-20.0)
[2019-11-11] MEDS: ACETYLCYSTEINE 20% SOLN 800 MG/4 ML VIAL.NEB NEB SCH ×2 (14:31→20:29)
--- NOTE | 2019-11-11 18:18 | PDOC PROGRESS REPORT ---
Subjective Progress Note for:: 11/11/19 Subjective:: This is a 29-year-old male with a distant who was brought in due to fever and chills. Patient was found to have bilateral lower lobe pneumonia with consolidation and left upper lobe pneumonia. Started on IV antibiotics. He also developed hypoxia and required BiPAP. No acute event overnight. Appears he is gradually improving. Upon encounter this morning, he is saturating well and is comfortable on BiPAP. He says shortness of breath has improved. Denies other acute complaints. Denies chest pain. We will try to wean off BiPAP today. Reason For Visit: AUTISM,PNEUMONIA,HYPOXIA,BODY ACHES Physical Exam Vital Signs: Temp Pulse Resp BP Pulse Ox 97.3 F 63 33 H 112/64 99 11/11/19 09:01 11/11/19 11:12 11/11/19 11:12 11/11/19 09:01 11/11/19 11:12 Intake & Output 11/10/19 11/11/19 11/12/19 06:59 06:59 06:59 Intake Total 3355 4490 Output Total 1150 5425 Balance 2205 -935 Weight 232 lb 5.875 oz 236 lb 5.369 oz General appearance: PRESENT: no acute distress, well-developed, well-nourished Head exam: PRESENT: atraumatic, normocephalic Eye exam: PRESENT: conjunctiva pink, EOMI, PERRLA. ABSENT: scleral icterus Ear exam: PRESENT: normal external ear exam Mouth exam: PRESENT: moist, tongue midline Neck exam: ABSENT: carotid bruit, JVD, lymphadenopathy, thyromegaly Respiratory exam: PRESENT: rales, rhonchi. ABSENT: wheezes Cardiovascular exam: PRESENT: RRR. ABSENT: diastolic murmur, rubs, systolic murmur Pulses: PRESENT: normal dorsalis pedis pul GI/Abdominal exam: PRESENT: normal bowel sounds, soft. ABSENT: distended, guarding, mass, organolmegaly, rebound, tenderness Rectal exam: PRESENT: deferred Extremities exam: PRESENT: full ROM. ABSENT: calf tenderness, clubbing, pedal edema Neurological exam: PRESENT: alert, awake, oriented to person, oriented to place, CN II-XII grossly intact. ABSENT: motor sensory deficit Results Laboratory Results: 11/10/19 07:30 11/11/19 11:28 11/11/19 11:28 Creatinine 0.54 Est GFR ( Amer) > 60 11/05/19 13:31 Blood Blood Culture - Final NO GROWTH IN 5 DAYS 11/05/19 12:25 Blood Blood Culture - Final NO GROWTH IN 5 DAYS Impressions: Shoulder X-Ray 11/05/19 00:00 IMPRESSION: Widening of the right AC joint as described. No fracture. Chest X-Ray 11/07/19 00:00 IMPRESSION: Increased pleural and parenchymal opacities in the inferior left hemithorax that could represent a combination of pleural fluid, atelectasis and/or pneumonia. Chest/Abdomen CTA 11/08/19 00:00 IMPRESSION: No CT angio evidence of acute pulmonary emboli or thoracic aortic dissection Very dense pneumonia multifocal. No significant pleural effusions. Assessment and Plan - Diagnosis (1) Acute respiratory failure with hypoxia Is this a current diagnosis for this admission?: Yes Plan: Secondary to multifocal pneumonia. Currently on BiPAP. We will try to wean off BiPAP today. (2) Bacterial pneumonia Is this a current diagnosis for this admission?: Yes Plan: Continue IV antibiotics. We will add Mucomyst and CPT. (3) Autism Is this a current diagnosis for this admission?: Yes Plan: Continue home meds. - Plan Summary Summary: 11/05/2019 Start patient on IV fluids, broad-spectrum IV antibiotics. I have actually called the lab and spoken to them about our flu swabs. Lab inform me that they are very specific and sensitive in about 95% accurate. Also that the ED staff is been trained on how to take a specimen, therefore I doubt that the patient has the flu. Lactic acid is pending, serial labs will be drawn 11/06/2019 Temperature this morning 101.6, heart rate anywhere from 103-124 Blood pressure 127/71 and O2 sat 92-95 on 5 L we will try to wean this down to 3 White blood cell count still normal 4200 Lactic acid level yesterday was 2.0 Glucose levels are running a little higher we will check a hemoglobin A1c Blood cultures and throat cultures are pending Patient's fever is being treated with Motrin 800 mg. Currently on IV Zithromax and IV Rocephin Clinically patient appears improved 11/07/2019 Last night at around 2300 hrs. patient had a temperature of 102.8, since then his temperature is been 98 Patient's pulse is been anywhere from 90-108, blood pressures remained stable Admission his O2 sats were in the low 90s and actually 86 and 88 on nasal cannula but requiring 5 L Even now patient is requiring 6 or 7 L of nasal cannula oxygen to maintain his sats, though he does not appear to be in any respiratory distress Patient's wBC from yesterday showed a leukopenia at 2.5 though he was admitted 2 days earlier with a white count of 8.2 Patient's platelets are remaining stable. I am going to repeat his lab work today. I am also going to repeat a portable chest x-ray today due to his oxygen requirements I have ordered a d-dimer as well. I will consider this information with his chest x-ray Clinically patient does not look septic or toxic or in distress 11/08/2019 Temperature 98.2, heart rate in the low 90s, pressure 104/64, durations between 20 and 24 Oxygen saturations are hovering between 89 and 91 on a partial nonrebreather with a rate of about 12-14 Patient's white count the day before was 3.1 platelets 142,000 Electrolytes are grossly normal CT angiogram of the chest done due to an elevated d-dimer shows no evidence of pulmonary embolism however pneumonia is worse with a very dense pneumonia multifocal Continue with IV antibiotics Rocephin day #3 and vancomycin day #2 11/09/2019 Temp 97 7 pulse rates acutely improved in the low 80s Pressure stable 126/75 respirations rates anywhere from 17 up to 32 averaging around 28 oxygen saturations are as low as 83 but currently for the last several hours have been in the mid 90s Patient is finally tolerating his BiPAP Rechecking labs in the morning I had the ICU shipping processor come by and see the patient this morning who recommended doing a blood gas, arterial blood gas showed a pH of 7.40, PCO2 of 53, PO2 of 81 ,bicarb 31, saturation 95% The shipping processor felt that the patient was stable to stay on the floor but that if he worsened he would be glad to accept him in the ICU and at that time would intubate the patient. Spoke to the patient's primary caregiver this afternoon and explained all this to her. She was appreciative of our care and understood the seriousness of his problem and the fact that his pneumonia was worsening as a result of the difficulty keeping the BiPAP on the patient keeping him oxygenated due to his autism. 11/10/2019 Temp 97 8 pulse 72 blood pressure 127/78 Durations anywhere from 16-40 based on his agitation and anxiety Oxygen saturations are improved and are in the mid to upper 90s BiPAP CBC shows white count 5500 H&H is stable platelets are stable Renal function show improvement with hydration Blood culture showed no growth in 5 days I have discussed his case multiple times with [facility] Patient appears to be improving with what were doing at this point Day #5 of Rocephin day# 4 of vancomycin - Time Time Spent with patient: 25-34 minutes
[2019-11-11] MEDS: BENZTROPINE MESYLATE 1 MG TABLET PO SCH (22:00)
[2019-11-11] MEDS: QUETIAPINE FUMARATE 100 MG TABLET PO SCH (22:00)
[2019-11-11] MEDS: ZOLPIDEM TARTRATE 5 MG TABLET PO SCH (22:00)
[2019-11-11] MEDS: OXCARBAZEPINE 150 MG TABLET PO SCH (22:00)
[2019-11-11] MEDS: DIVALPROEX SODIUM 250 MG TABLET.DR PO SCH (22:01)
[2019-11-11] MEDS: ATORVASTATIN CALCIUM 10 MG TABLET PO SCH (22:01)
[2019-11-11] MEDS: VANCOMYCIN HCL 1,500 MG in DEXTROSE 5%-WATER 250 ML IV SCH (22:02)
[2019-11-12] MEDS: IPRATROPIUM/ALBUTEROL 0.5-2.5 MG/3 ML AMPUL NEB SCH ×4 (02:36→20:08)
[2019-11-12] MEDS: VANCOMYCIN HCL 1,500 MG in DEXTROSE 5%-WATER 250 ML IV SCH ×5 (03:26→21:40)
[2019-11-12] MEDS: METHYLPREDNISOLONE INJ 40 MG/1 ML SDV IV SCH ×4 (03:27→21:51)
[2019-11-12] MEDS: NORMAL SALINE 1000 ML 1,000 ML IV PRN (03:29)
[2019-11-12] MEDS: PANTOPRAZOLE SODIUM 20 MG TABLET.DR PO SCH (06:10)
[2019-11-12] MEDS: LEVOTHYROXINE SODIUM 0.075 MG TABLET PO SCH (06:11)
[2019-11-12] MEDS: LEVOTHYROXINE SODIUM 0.1 MG TABLET PO SCH (06:11)
[2019-11-12] MEDS: LORAZEPAM INJ 2 MG/1 ML VIAL IV SCH ×3 (06:11→18:05)
[2019-11-12] MEDS: ACETYLCYSTEINE 20% SOLN 800 MG/4 ML VIAL.NEB NEB SCH ×2 (08:23→20:08)
[2019-11-12] MEDS: MULTIVITAMIN TABLET PO SCH (09:50)
[2019-11-12] MEDS: LAMOTRIGINE 100 MG TABLET PO SCH ×2 (09:50→21:53)
[2019-11-12] MEDS: GUAIFENESIN SYRP 200 MG/10 ML UDC PO PRN ×2 (09:50→18:04)
[2019-11-12] MEDS: CEFTRIAXONE 1 GM/D5W RTU 1 GM/50 ML RTUPB IV SCH ×2 (09:50→12:00)
[2019-11-12] MEDS: DOCUSATE SODIUM 100 MG CAPSULE PO SCH ×2 (09:50→18:05)
[2019-11-12] MEDS: IBUPROFEN 800 MG TABLET PO PRN ×2 (09:53→18:04)
[2019-11-12] MEDS: ENOXAPARIN SODIUM INJ 40 MG/0.4 ML DISP.SYRIN SUBCUT SCH (09:54)
--- NOTE | 2019-11-12 16:05 | PDOC PROGRESS REPORT ---
Subjective Progress Note for:: 11/12/19 Subjective:: This is a 29-year-old male with a distant who was brought in due to fever and chills. Patient was found to have bilateral lower lobe pneumonia with consolidation and left upper lobe pneumonia. Started on IV antibiotics. He also developed hypoxia and required BiPAP. 11/11: No acute event overnight. Appears he is gradually improving. Upon encounter this morning, he is saturating well and is comfortable on BiPAP. He says shortness of breath has improved. Denies other acute complaints. Denies chest pain. We will try to wean off BiPAP today. 11/12: No acute issues. He continues to improve. He has been weaned off BiPAP he saturating well and comfortable on nasal cannula. He says he continues to feel better and denies acute shortness of breath. Reason For Visit: AUTISM,PNEUMONIA,HYPOXIA,BODY ACHES Physical Exam Vital Signs: Temp Pulse Resp BP Pulse Ox 97.6 F 96 18 122/67 96 11/12/19 07:38 11/12/19 13:52 11/12/19 13:52 11/12/19 07:38 11/12/19 13:52 Intake & Output 11/11/19 11/12/19 11/13/19 06:59 06:59 06:59 Intake Total 4490 2446 1300 Output Total 5425 1150 Balance -935 1296 1300 Weight 236 lb 5.369 oz 229 lb 15.074 oz General appearance: PRESENT: no acute distress, well-developed, well-nourished Head exam: PRESENT: atraumatic, normocephalic Eye exam: PRESENT: conjunctiva pink, EOMI, PERRLA. ABSENT: scleral icterus Ear exam: PRESENT: normal external ear exam Mouth exam: PRESENT: moist, tongue midline Neck exam: ABSENT: carotid bruit, JVD, lymphadenopathy, thyromegaly Respiratory exam: PRESENT: rhonchi. ABSENT: rales, wheezes Cardiovascular exam: PRESENT: RRR. ABSENT: diastolic murmur, rubs, systolic murmur Pulses: PRESENT: normal dorsalis pedis pul GI/Abdominal exam: PRESENT: normal bowel sounds, soft. ABSENT: distended, guarding, mass, organolmegaly, rebound, tenderness Rectal exam: PRESENT: deferred Extremities exam: PRESENT: full ROM. ABSENT: calf tenderness, clubbing, pedal edema Neurological exam: PRESENT: alert, awake, oriented to person, oriented to place, oriented to time, oriented to situation, CN II-XII grossly intact. ABSENT: motor sensory deficit Results Laboratory Results: 11/10/19 07:30 11/11/19 11:28 Impressions: Shoulder X-Ray 11/05/19 00:00 IMPRESSION: Widening of the right AC joint as described. No fracture. Chest X-Ray 11/07/19 00:00 IMPRESSION: Increased pleural and parenchymal opacities in the inferior left hemithorax that could represent a combination of pleural fluid, atelectasis and/or pneumonia. Chest/Abdomen CTA 11/08/19 00:00 IMPRESSION: No CT angio evidence of acute pulmonary emboli or thoracic aortic dissection Very dense pneumonia multifocal. No significant pleural effusions. Assessment and Plan - Diagnosis (1) Acute respiratory failure with hypoxia Is this a current diagnosis for this admission?: Yes Plan: Secondary to multifocal pneumonia. Currently on BiPAP. We will try to wean off BiPAP today. 11/12: Improving. Weaned off BIPAP. (2) Bacterial pneumonia Is this a current diagnosis for this admission?: Yes Plan: Continue IV antibiotics. Continue Mucomyst and CPT. (3) Autism Is this a current diagnosis for this admission?: Yes Plan: Continue home meds. - Plan Summary Summary: 11/05/2019 Start patient on IV fluids, broad-spectrum IV antibiotics. I have actually called the lab and spoken to them about our flu swabs. Lab inform me that they are very specific and sensitive in about 95% accurate. Also that the ED staff is been trained on how to take a specimen, therefore I doubt that the patient has the flu. Lactic acid is pending, serial labs will be drawn 11/06/2019 Temperature this morning 101.6, heart rate anywhere from 103-124 Blood pressure 127/71 and O2 sat 92-95 on 5 L we will try to wean this down to 3 White blood cell count still normal 4200 Lactic acid level yesterday was 2.0 Glucose levels are running a little higher we will check a hemoglobin A1c Blood cultures and throat cultures are pending Patient's fever is being treated with Motrin 800 mg. Currently on IV Zithromax and IV Rocephin Clinically patient appears improved 11/07/2019 Last night at around 2300 hrs. patient had a temperature of 102.8, since then his temperature is been 98 Patient's pulse is been anywhere from 90-108, blood pressures remained stable Admission his O2 sats were in the low 90s and actually 86 and 88 on nasal cannula but requiring 5 L Even now patient is requiring 6 or 7 L of nasal cannula oxygen to maintain his sats, though he does not appear to be in any respiratory distress Patient's wBC from yesterday showed a leukopenia at 2.5 though he was admitted 2 days earlier with a white count of 8.2 Patient's platelets are remaining stable. I am going to repeat his lab work today. I am also going to repeat a portable chest x-ray today due to his oxygen requirements I have ordered a d-dimer as well. I will consider this information with his chest x-ray Clinically patient does not look septic or toxic or in distress 11/08/2019 Temperature 98.2, heart rate in the low 90s, pressure 104/64, durations between 20 and 24 Oxygen saturations are hovering between 89 and 91 on a partial nonrebreather with a rate of about 12-14 Patient's white count the day before was 3.1 platelets 142,000 Electrolytes are grossly normal CT angiogram of the chest done due to an elevated d-dimer shows no evidence of pulmonary embolism however pneumonia is worse with a very dense pneumonia multifocal Continue with IV antibiotics Rocephin day #3 and vancomycin day #2 11/09/2019 Temp 97 7 pulse rates acutely improved in the low 80s Pressure stable 126/75 respirations rates anywhere from 17 up to 32 averaging around 28 oxygen saturations are as low as 83 but currently for the last several hours have been in the mid 90s Patient is finally tolerating his BiPAP Rechecking labs in the morning I had the ICU customer data technician come by and see the patient this morning who recommended doing a blood gas, arterial blood gas showed a pH of 7.40, PCO2 of 53, PO2 of 81 ,bicarb 31, saturation 95% The customer data technician felt that the patient was stable to stay on the floor but that if he worsened he would be glad to accept him in the ICU and at that time would intubate the patient. Spoke to the patient's primary caregiver this afternoon and explained all this to her. She was appreciative of our care and understood the seriousness of his problem and the fact that his pneumonia was worsening as a result of the difficulty keeping the BiPAP on the patient keeping him oxygenated due to his autism. 11/10/2019 Temp 97 8 pulse 72 blood pressure 127/78 Durations anywhere from 16-40 based on his agitation and anxiety Oxygen saturations are improved and are in the mid to upper 90s BiPAP CBC shows white count 5500 H&H is stable platelets are stable Renal function show improvement with hydration Blood culture showed no growth in 5 days I have discussed his case multiple times with multiple caregivers from [facility]the [facility]". Patient appears to be improving with what were doing at this point Day #5 of Rocephin day# 4 of vancomycin - Time Time Spent with patient: 25-34 minutes
[2019-11-12] MEDS: DIVALPROEX SODIUM 250 MG TABLET.DR PO SCH (21:43)
[2019-11-12] MEDS: QUETIAPINE FUMARATE 100 MG TABLET PO SCH (21:51)
[2019-11-12] MEDS: BENZTROPINE MESYLATE 1 MG TABLET PO SCH (21:51)
[2019-11-12] MEDS: ATORVASTATIN CALCIUM 10 MG TABLET PO SCH (21:52)
[2019-11-12] MEDS: OXCARBAZEPINE 150 MG TABLET PO SCH (21:53)
[2019-11-13] MEDS: IPRATROPIUM/ALBUTEROL 0.5-2.5 MG/3 ML AMPUL NEB SCH ×4 (02:22→20:55)
[2019-11-13] MEDS: METHYLPREDNISOLONE INJ 40 MG/1 ML SDV IV SCH ×4 (03:32→21:49)
[2019-11-13] MEDS: VANCOMYCIN HCL 1,500 MG in DEXTROSE 5%-WATER 250 ML IV SCH ×2 (03:32→09:47)
[2019-11-13] MEDS: LORAZEPAM INJ 2 MG/1 ML VIAL IV SCH ×4 (07:21→17:20)
[2019-11-13] MEDS: PANTOPRAZOLE SODIUM 20 MG TABLET.DR PO SCH (07:22)
[2019-11-13] MEDS: ACETYLCYSTEINE 20% SOLN 800 MG/4 ML VIAL.NEB NEB SCH ×2 (07:45→20:55)
[2019-11-13] MEDS: LEVOTHYROXINE SODIUM 0.1 MG TABLET PO SCH (08:10)
[2019-11-13] MEDS: NORMAL SALINE 1000 ML 1,000 ML IV PRN ×2 (08:10→18:00)
[2019-11-13] MEDS: LEVOTHYROXINE SODIUM 0.075 MG TABLET PO SCH (08:11)
[2019-11-13] MEDS: ENOXAPARIN SODIUM INJ 40 MG/0.4 ML DISP.SYRIN SUBCUT SCH (09:41)
[2019-11-13] MEDS: LAMOTRIGINE 100 MG TABLET PO SCH ×2 (09:42→21:51)
[2019-11-13] MEDS: DOCUSATE SODIUM 100 MG CAPSULE PO SCH ×2 (09:42→17:02)
[2019-11-13] MEDS: MULTIVITAMIN TABLET PO SCH (09:44)
[2019-11-13] MEDS: IBUPROFEN 800 MG TABLET PO PRN (11:19)
[2019-11-13] MEDS: LEVOFLOXACIN 500 MG TABLET PO SCH (15:07)
--- NOTE | 2019-11-13 15:36 | PDOC PROGRESS REPORT ---
Subjective Progress Note for:: 11/13/19 Subjective:: This is a 29-year-old male with a distant who was brought in due to fever and chills. Patient was found to have bilateral lower lobe pneumonia with consolidation and left upper lobe pneumonia. Started on IV antibiotics. He also developed hypoxia and required BiPAP. 11/11: No acute event overnight. Appears he is gradually improving. Upon encounter this morning, he is saturating well and is comfortable on BiPAP. He says shortness of breath has improved. Denies other acute complaints. Denies chest pain. We will try to wean off BiPAP today. 11/12: No acute issues. He continues to improve. He has been weaned off BiPAP he saturating well and comfortable on nasal cannula. He says he continues to feel better and denies acute shortness of breath. 11/13: No acute event overnight. Denies acute complaints. He continues to significantly improve. He is comfortable and is saturating well on nasal cannula. Will switch IV antibiotics to oral today. We will try to wean off O2 today. Reason For Visit: AUTISM,PNEUMONIA,HYPOXIA,BODY ACHES Physical Exam Vital Signs: Temp Pulse Resp BP Pulse Ox 97.4 F 76 20 109/57 L 97 11/13/19 07:25 11/13/19 07:46 11/13/19 07:46 11/13/19 07:25 11/13/19 07:46 Intake & Output 11/12/19 11/13/19 11/14/19 06:59 06:59 06:59 Intake Total 2446 3120 Output Total 1150 1760 Balance 1296 1360 Weight 229 lb 15.074 oz 220 lb 10.923 oz 220 lb 10.923 oz General appearance: PRESENT: no acute distress, well-developed, well-nourished Head exam: PRESENT: atraumatic, normocephalic Eye exam: PRESENT: conjunctiva pink, EOMI, PERRLA. ABSENT: scleral icterus Ear exam: PRESENT: normal external ear exam Mouth exam: PRESENT: moist, tongue midline Neck exam: ABSENT: carotid bruit, JVD, lymphadenopathy, thyromegaly Respiratory exam: PRESENT: rhonchi. ABSENT: rales, wheezes Cardiovascular exam: PRESENT: RRR. ABSENT: diastolic murmur, rubs, systolic murmur Pulses: PRESENT: normal dorsalis pedis pul GI/Abdominal exam: PRESENT: normal bowel sounds, soft. ABSENT: distended, guarding, mass, organolmegaly, rebound, tenderness Rectal exam: PRESENT: deferred Neurological exam: PRESENT: alert, awake, oriented to person, oriented to place Results Laboratory Results: 11/10/19 07:30 11/11/19 11:28 Impressions: Shoulder X-Ray 11/05/19 00:00 IMPRESSION: Widening of the right AC joint as described. No fracture. Chest X-Ray 11/07/19 00:00 IMPRESSION: Increased pleural and parenchymal opacities in the inferior left hemithorax that could represent a combination of pleural fluid, atelectasis and/or pneumonia. Chest/Abdomen CTA 11/08/19 00:00 IMPRESSION: No CT angio evidence of acute pulmonary emboli or thoracic aortic dissection Very dense pneumonia multifocal. No significant pleural effusions. Assessment and Plan - Diagnosis (1) Acute respiratory failure with hypoxia Is this a current diagnosis for this admission?: Yes Plan: Secondary to multifocal pneumonia. Currently on BiPAP. We will try to wean off BiPAP today. 11/12: Improving. Weaned off BIPAP. 11/13: We will try to wean off O2 today. (2) Bacterial pneumonia Is this a current diagnosis for this admission?: Yes Plan: 11/12: Continue IV antibiotics. Continue Mucomyst and CPT. 11/13: Will switch IV antibiotics to oral today. (3) Autism Is this a current diagnosis for this admission?: Yes Plan: Continue home meds. - Plan Summary Summary: 11/05/2019 Start patient on IV fluids, broad-spectrum IV antibiotics. I have actually called the lab and spoken to them about our flu swabs. Lab inform me that they are very specific and sensitive in about 95% accurate. Also that the ED staff is been trained on how to take a specimen, therefore I doubt that the patient has the flu. Lactic acid is pending, serial labs will be drawn 11/06/2019 Temperature this morning 101.6, heart rate anywhere from 103-124 Blood pressure 127/71 and O2 sat 92-95 on 5 L we will try to wean this down to 3 White blood cell count still normal 4200 Lactic acid level yesterday was 2.0 Glucose levels are running a little higher we will check a hemoglobin A1c Blood cultures and throat cultures are pending Patient's fever is being treated with Motrin 800 mg. Currently on IV Zithromax and IV Rocephin Clinically patient appears improved 11/07/2019 Last night at around 2300 hrs. patient had a temperature of 102.8, since then his temperature is been 98 Patient's pulse is been anywhere from 90-108, blood pressures remained stable Admission his O2 sats were in the low 90s and actually 86 and 88 on nasal cannula but requiring 5 L Even now patient is requiring 6 or 7 L of nasal cannula oxygen to maintain his sats, though he does not appear to be in any respiratory distress Patient's wBC from yesterday showed a leukopenia at 2.5 though he was admitted 2 days earlier with a white count of 8.2 Patient's platelets are remaining stable. I am going to repeat his lab work today. I am also going to repeat a portable chest x-ray today due to his oxygen requirements I have ordered a d-dimer as well. I will consider this information with his chest x-ray Clinically patient does not look septic or toxic or in distress 11/08/2019 Temperature 98.2, heart rate in the low 90s, pressure 104/64, durations between 20 and 24 Oxygen saturations are hovering between 89 and 91 on a partial nonrebreather with a rate of about 12-14 Patient's white count the day before was 3.1 platelets 142,000 Electrolytes are grossly normal CT angiogram of the chest done due to an elevated d-dimer shows no evidence of pulmonary embolism however pneumonia is worse with a very dense pneumonia multifocal Continue with IV antibiotics Rocephin day #3 and vancomycin day #2 11/09/2019 Temp 97 7 pulse rates acutely improved in the low 80s Pressure stable 126/75 respirations rates anywhere from 17 up to 32 averaging around 28 oxygen saturations are as low as 83 but currently for the last several hours have been in the mid 90s Patient is finally tolerating his BiPAP Rechecking labs in the morning I had the ICU director geophysical laboratory come by and see the patient this morning who recommended doing a blood gas, arterial blood gas showed a pH of 7.40, PCO2 of 53, PO2 of 81 ,bicarb 31, saturation 95% The director geophysical laboratory felt that the patient was stable to stay on the floor but that if he worsened he would be glad to accept him in the ICU and at that time would intubate the patient. Spoke to the patient's primary caregiver this afternoon and explained all this to her. She was appreciative of our care and understood the seriousness of his problem and the fact that his pneumonia was worsening as a result of the difficulty keeping the BiPAP on the patient keeping him oxygenated due to his autism. 11/10/2019 Temp 97 8 pulse 72 blood pressure 127/78 Durations anywhere from 16-40 based on his agitation and anxiety Oxygen saturations are improved and are in the mid to upper 90s BiPAP CBC shows white count 5500 H&H is stable platelets are stable Renal function show improvement with hydration Blood culture showed no growth in 5 days I have discussed his case multiple times with multiple [facility] Patient appears to be improving with what were doing at this point Day #5 of Rocephin day# 4 of vancomycin - Time Time Spent with patient: 25-34 minutes
[2019-11-13] MEDS: QUETIAPINE FUMARATE 100 MG TABLET PO SCH (21:49)
[2019-11-13] MEDS: BENZTROPINE MESYLATE 1 MG TABLET PO SCH (21:50)
[2019-11-13] MEDS: DIVALPROEX SODIUM 250 MG TABLET.DR PO SCH (21:50)
[2019-11-13] MEDS: ATORVASTATIN CALCIUM 10 MG TABLET PO SCH (21:51)
[2019-11-13] MEDS: OXCARBAZEPINE 150 MG TABLET PO SCH (21:51)
[2019-11-13] MEDS: GUAIFENESIN SYRP 200 MG/10 ML UDC PO PRN (22:16)
[2019-11-13] MEDS ORDERED: CALCIUM CARBONATE 500 MG TAB.CHEW PO PRN (22:40)
[2019-11-14] MEDS: IPRATROPIUM/ALBUTEROL 0.5-2.5 MG/3 ML AMPUL NEB SCH ×4 (02:15→21:24)
[2019-11-14] MEDS: NORMAL SALINE 1000 ML 1,000 ML IV PRN (04:11)
[2019-11-14] MEDS: METHYLPREDNISOLONE INJ 40 MG/1 ML SDV IV SCH ×2 (04:12→08:30)
[2019-11-14] MEDS: IBUPROFEN 800 MG TABLET PO PRN (05:02)
[2019-11-14] MEDS: LEVOTHYROXINE SODIUM 0.075 MG TABLET PO SCH (05:03)
[2019-11-14] MEDS: PANTOPRAZOLE SODIUM 20 MG TABLET.DR PO SCH (05:03)
[2019-11-14] MEDS: LEVOTHYROXINE SODIUM 0.1 MG TABLET PO SCH (05:03)
[2019-11-14] MEDS: ACETYLCYSTEINE 20% SOLN 800 MG/4 ML VIAL.NEB NEB SCH ×2 (08:07→21:24)
[2019-11-14] MEDS: DOCUSATE SODIUM 100 MG CAPSULE PO SCH ×2 (09:19→17:15)
[2019-11-14] MEDS: ENOXAPARIN SODIUM INJ 40 MG/0.4 ML DISP.SYRIN SUBCUT SCH (09:21)
[2019-11-14] MEDS: MULTIVITAMIN TABLET PO SCH (09:22)
[2019-11-14] MEDS: LEVOFLOXACIN 500 MG TABLET PO SCH (09:22)
[2019-11-14] MEDS: LAMOTRIGINE 100 MG TABLET PO SCH ×2 (09:22→21:47)
[2019-11-14] MEDS ORDERED: PREDNISONE 20 MG TABLET PO ONE (11:15)
--- NOTE | 2019-11-14 12:57 | EKG REPORT ---
SEVERITY:- BORDERLINE ECG - SINUS RHYTHM PROBABLE LEFT ATRIAL ABNORMALITY : Confirmed by: Jessy Renner 14-Nov-2019 12:57:09
--- NOTE | 2019-11-14 16:33 | PDOC PROGRESS REPORT ---
Subjective Progress Note for:: 11/14/19 Subjective:: This is a 29-year-old male with a distant who was brought in due to fever and chills. Patient was found to have bilateral lower lobe pneumonia with consolidation and left upper lobe pneumonia. Started on IV antibiotics. He also developed hypoxia and required BiPAP. 11/11: No acute event overnight. Appears he is gradually improving. Upon encounter this morning, he is saturating well and is comfortable on BiPAP. He says shortness of breath has improved. Denies other acute complaints. Denies chest pain. We will try to wean off BiPAP today. 11/12: No acute issues. He continues to improve. He has been weaned off BiPAP he saturating well and comfortable on nasal cannula. He says he continues to feel better and denies acute shortness of breath. 11/13: No acute event overnight. Denies acute complaints. He continues to significantly improve. He is comfortable and is saturating well on nasal cannula. Will switch IV antibiotics to oral today. We will try to wean off O2 today. 11/14: No acute issues. Patient continues to improve. Denies acute complaints encounter this morning. He is still requiring but minimal O2 via nasal cannula. Will try to continue weaning him off the supplemental O2. Reason For Visit: AUTISM,PNEUMONIA,HYPOXIA,BODY ACHES Physical Exam Vital Signs: Temp Pulse Resp BP Pulse Ox 98.0 F 98 18 112/66 96 11/14/19 11:06 11/14/19 14:05 11/14/19 14:05 11/14/19 11:06 11/14/19 14:05 Intake & Output 11/13/19 11/14/19 11/15/19 06:59 06:59 06:59 Intake Total 3120 4835 0 Output Total 1760 5200 Balance 1360 -365 0 Weight 220 lb 10.923 oz 223 lb 8.78 oz General appearance: PRESENT: no acute distress, well-developed, well-nourished Head exam: PRESENT: atraumatic, normocephalic Eye exam: PRESENT: conjunctiva pink, EOMI, PERRLA. ABSENT: scleral icterus Ear exam: PRESENT: normal external ear exam Mouth exam: PRESENT: moist, tongue midline Neck exam: ABSENT: carotid bruit, JVD, lymphadenopathy, thyromegaly Respiratory exam: PRESENT: rhonchi. ABSENT: rales, wheezes Cardiovascular exam: PRESENT: RRR. ABSENT: diastolic murmur, rubs, systolic murmur Pulses: PRESENT: normal dorsalis pedis pul GI/Abdominal exam: PRESENT: normal bowel sounds, soft. ABSENT: distended, guarding, mass, organolmegaly, rebound, tenderness Rectal exam: PRESENT: deferred Extremities exam: PRESENT: full ROM. ABSENT: calf tenderness, clubbing, pedal edema Neurological exam: PRESENT: alert, awake, oriented to person, oriented to place, oriented to time, oriented to situation, CN II-XII grossly intact. ABSENT: motor sensory deficit Results Laboratory Results: 11/10/19 07:30 11/11/19 11:28 Impressions: Shoulder X-Ray 11/05/19 00:00 IMPRESSION: Widening of the right AC joint as described. No fracture. Chest X-Ray 11/07/19 00:00 IMPRESSION: Increased pleural and parenchymal opacities in the inferior left hemithorax that could represent a combination of pleural fluid, atelectasis an d/or pneumonia. Chest/Abdomen CTA 11/08/19 00:00 IMPRESSION: No CT angio evidence of acute pulmonary emboli or thoracic aortic dissection Very dense pneumonia multifocal. No significant pleural effusions. Assessment and Plan - Diagnosis (1) Acute respiratory failure with hypoxia Is this a current diagnosis for this admission?: Yes Plan: Secondary to multifocal pneumonia. Currently on BiPAP. We will try to wean off BiPAP today. 11/12: Improving. Weaned off BIPAP. 11/14: We will try to wean off O2 today. (2) Bacterial pneumonia Is this a current diagnosis for this admission?: Yes Plan: 11/12: Continue IV antibiotics. Continue Mucomyst and CPT. 11/13: Will switch IV antibiotics to oral today. 11/14: Continue PO Levaquin. (3) Autism Is this a current diagnosis for this admission?: Yes Plan: Continue home meds. - Plan Summary Summary: 11/05/2019 Start patient on IV fluids, broad-spectrum IV antibiotics. I have actually called the lab and spoken to them about our flu swabs. Lab inform me that they are very specific and sensitive in about 95% accurate. Also that the ED staff is been trained on how to take a specimen, therefore I doubt that the patient has the flu. Lactic acid is pending, serial labs will be drawn 11/06/2019 Temperature this morning 101.6, heart rate anywhere from 103-124 Blood pressure 127/71 and O2 sat 92-95 on 5 L we will try to wean this down to 3 White blood cell count still normal 4200 Lactic acid level yesterday was 2.0 Glucose levels are running a little higher we will check a hemoglobin A1c Blood cultures and throat cultures are pending Patient's fever is being treated with Motrin 800 mg. Currently on IV Zithromax and IV Rocephin Clinically patient appears improved 11/07/2019 Last night at around 2300 hrs. patient had a temperature of 102.8, since then his temperature is been 98 Patient's pulse is been anywhere from 90-108, blood pressures remained stable Admission his O2 sats were in the low 90s and actually 86 and 88 on nasal cannula but requiring 5 L Even now patient is requiring 6 or 7 L of nasal cannula oxygen to maintain his sats, though he does not appear to be in any respiratory distress Patient's wBC from yesterday showed a leukopenia at 2.5 though he was admitted 2 days earlier with a white count of 8.2 Patient's platelets are remaining stable. I am going to repeat his lab work today. I am also going to repeat a portable chest x-ray today due to his oxygen requirements I have ordered a d-dimer as well. I will consider this information with his chest x-ray Clinically patient does not look septic or toxic or in distress 11/08/2019 Temperature 98.2, heart rate in the low 90s, pressure 104/64, durations between 20 and 24 Oxygen saturations are hovering between 89 and 91 on a partial nonrebreather with a rate of about 12-14 Patient's white count the day before was 3.1 platelets 142,000 Electrolytes are grossly normal CT angiogram of the chest done due to an elevated d-dimer shows no evidence of pulmonary embolism however pneumonia is worse with a very dense pneumonia multifocal Continue with IV antibiotics Rocephin day #3 and vancomycin day #2 11/09/2019 Temp 97 7 pulse rates acutely improved in the low 80s Pressure stable 126/75 respirations rates anywhere from 17 up to 32 averaging around 28 oxygen saturations are as low as 83 but currently for the last several hours have been in the mid 90s Patient is finally tolerating his BiPAP Rechecking labs in the morning I had the ICU district resource officer come by and see the patient this morning who recommended doing a blood gas, arterial blood gas showed a pH of 7.40, PCO2 of 53, PO2 of 81 ,bicarb 31, saturation 95% The district resource officer felt that the patient was stable to stay on the floor but that if he worsened he would be glad to accept him in the ICU and at that time would intubate the patient. Spoke to the patient's primary caregiver this afternoon and explained all this to her. She was appreciative of our care and understood the seriousness of his problem and the fact that his pneumonia was worsening as a result of the difficulty keeping the BiPAP on the patient keeping him oxygenated due to his autism. 11/10/2019 Temp 97 8 pulse 72 blood pressure 127/78 Durations anywhere from 16-40 based on his agitation and anxiety Oxygen saturations are improved and are in the mid to upper 90s BiPAP CBC shows white count 5500 H&H is stable platelets are stable Renal function show improvement with hydration Blood culture showed no growth in 5 days I have discussed his case multiple times with multiple caregivers from "the [facility]". Patient appears to be improving with what were doing at this point Day #5 of Rocephin day# 4 of vancomycin - Time Time Spent with patient: 25-34 minutes
[2019-11-14] MEDS: OXCARBAZEPINE 150 MG TABLET PO SCH (21:46)
[2019-11-14] MEDS: DIVALPROEX SODIUM 250 MG TABLET.DR PO SCH (21:47)
[2019-11-14] MEDS: QUETIAPINE FUMARATE 100 MG TABLET PO SCH (21:47)
[2019-11-14] MEDS: BENZTROPINE MESYLATE 1 MG TABLET PO SCH (21:48)
[2019-11-14] MEDS: ATORVASTATIN CALCIUM 10 MG TABLET PO SCH (21:48)
[2019-11-15] MEDS: IPRATROPIUM/ALBUTEROL 0.5-2.5 MG/3 ML AMPUL NEB SCH ×2 (02:17→07:43)
[2019-11-15] MEDS: LEVOTHYROXINE SODIUM 0.1 MG TABLET PO SCH (05:52)
[2019-11-15] MEDS: LEVOTHYROXINE SODIUM 0.075 MG TABLET PO SCH (05:52)
[2019-11-15] MEDS: PANTOPRAZOLE SODIUM 20 MG TABLET.DR PO SCH (05:52)
[2019-11-15] MEDS: ACETYLCYSTEINE 20% SOLN 800 MG/4 ML VIAL.NEB NEB SCH (07:44)
[2019-11-15] MEDS: LAMOTRIGINE 100 MG TABLET PO SCH (09:51)
[2019-11-15] MEDS: DOCUSATE SODIUM 100 MG CAPSULE PO SCH (09:51)
[2019-11-15] MEDS: MULTIVITAMIN TABLET PO SCH (09:52)
[2019-11-15] MEDS: LEVOFLOXACIN 500 MG TABLET PO SCH (09:52)
[2019-11-15] MEDS: ENOXAPARIN SODIUM INJ 40 MG/0.4 ML DISP.SYRIN SUBCUT SCH (09:53)
[2019-11-15 14:13] VITALS: BP 131/65
--- NOTE | 2019-11-15 18:15 | PDOC DISCHARGE SUMMARY ---
Impression - Admit/DC Date/PCP Admission Date/Primary Care Provider: 11/05/19 14:20 BISHNU CID PA-C Discharge Date: 11/15/19 - Discharge Diagnosis (1) Acute respiratory failure with hypoxia Is this a current diagnosis for this admission?: Yes (2) Bacterial pneumonia Is this a current diagnosis for this admission?: Yes (3) Autism Is this a current diagnosis for this admission?: Yes - Assessment Summary: 11/05/2019 Start patient on IV fluids, broad-spectrum IV antibiotics. I have actually called the lab and spoken to them about our flu swabs. Lab inform me that they are very specific and sensitive in about 95% accurate. Also that the ED staff is been trained on how to take a specimen, therefore I doubt that the patient has the flu. Lactic acid is pending, serial labs will be drawn 11/06/2019 Temperature this morning 101.6, heart rate anywhere from 103-124 Blood pressure 127/71 and O2 sat 92-95 on 5 L we will try to wean this down to 3 White blood cell count still normal 4200 Lactic acid level yesterday was 2.0 Glucose levels are running a little higher we will check a hemoglobin A1c Blood cultures and throat cultures are pending Patient's fever is being treated with Motrin 800 mg. Currently on IV Zithromax and IV Rocephin Clinically patient appears improved 11/07/2019 Last night at around 2300 hrs. patient had a temperature of 102.8, since then his temperature is been 98 Patient's pulse is been anywhere from 90-108, blood pressures remained stable Admission his O2 sats were in the low 90s and actually 86 and 88 on nasal cannula but requiring 5 L Even now patient is requiring 6 or 7 L of nasal cannula oxygen to maintain his sats, though he does not appear to be in any respiratory distress Patient's wBC from yesterday showed a leukopenia at 2.5 though he was admitted 2 days earlier with a white count of 8.2 Patient's platelets are remaining stable. I am going to repeat his lab work today. I am also going to repeat a portable chest x-ray today due to his oxygen requirements I have ordered a d-dimer as well. I will consider this information with his chest x-ray Clinically patient does not look septic or toxic or in distress 11/08/2019 Temperature 98.2, heart rate in the low 90s, pressure 104/64, durations between 20 and 24 Oxygen saturations are hovering between 89 and 91 on a partial nonrebreather with a rate of about 12-14 Patient's white count the day before was 3.1 platelets 142,000 Electrolytes are grossly normal CT angiogram of the chest done due to an elevated d-dimer shows no evidence of pulmonary embolism however pneumonia is worse with a very dense pneumonia multifocal Continue with IV antibiotics Rocephin day #3 and vancomycin day #2 11/09/2019 Temp 97 7 pulse rates acutely improved in the low 80s Pressure stable 126/75 respirations rates anywhere from 17 up to 32 averaging around 28 oxygen saturations are as low as 83 but currently for the last several hours have been in the mid 90s Patient is finally tolerating his BiPAP Rechecking labs in the morning I had the ICU marketing content coordinator come by and see the patient this morning who recommended doing a blood gas, arterial blood gas showed a pH of 7.40, PCO2 of 53, PO2 of 81 ,bicarb 31, saturation 95% The marketing content coordinator felt that the patient was stable to stay on the floor but that if he worsened he would be glad to accept him in the ICU and at that time would intubate the patient. Spoke to the patient's primary caregiver this afternoon and explained all this to her. She was appreciative of our care and understood the seriousness of his problem and the fact that his pneumonia was worsening as a result of the difficulty keeping the BiPAP on the patient keeping him oxygenated due to his autism. 11/10/2019 Temp 97 8 pulse 72 blood pressure 127/78 Durations anywhere from 16-40 based on his agitation and anxiety Oxygen saturations are improved and are in the mid to upper 90s BiPAP CBC shows white count 5500 H&H is stable platelets are stable Renal function show improvement with hydration Blood culture showed no growth in 5 days I have discussed his case multiple times with multiple caregivers from [facility]". Patient appears to be improving with what were doing at this point Day #5 of Rocephin day# 4 of vancomycin - Additional Information Resuscitation Status: Full Code Discharge Diet: As Tolerated Discharge Activity: Activity As Tolerated Referrals: Ethan Ornelas [Other] ANNEMARIE ANGULO PA-C [NO LOCAL MD] - Follow up as needed Prescriptions: Levofloxacin [Levaquin 500 mg Tablet] 500 mg PO DAILY 3 Days #3 tablet Home Medications: Ammonium Lactate [Lac-Hydrin 12% Lotion 225Gm/Bottle] 1 applic TP BIDP PRN 11/05/19 Benztropine Mesylate [Cogentin 1 mg Tablet] 1 mg PO QHS 11/05/19 Chlorpheniramine/Dextromethorp [Coricidin Hbp Cough-Cold Tab] 2 tab PO Q6HP PRN 11/05/19 Divalproex Sodium [Depakote] 1,500 mg PO QHS 11/05/19 Eszopiclone [Lunesta] 3 mg PO QHS 11/05/19 Ibuprofen [Motrin 600 mg Tablet] 600 mg PO Q4HP PRN 11/05/19 Lamotrigine [Lamictal] 150 mg PO BID 11/05/19 Lanolin Alcohol/Mo/W.pet/[place] [Eucerin Creme] 1 applic TP BID 11/05/19 Levothyroxine Sodium 175 mcg PO Q6AM 11/05/19 Loperamide HCl [Loperamide] 2 mg PO Q8HP PRN 11/05/19 Loratadine [Claritin 10 mg Tablet] 10 mg PO DAILYP PRN 11/05/19 Magnesium Hydroxide [Milk of Magnesia 30 ml Udcup] 30 ml PO HSP PRN 11/05/19 Multivit-Min/FA/Lycopen/Lutein [Certavite Sr-Antioxidant Tab] 1 each PO QAM 11/05/19 Omeprazole 20 mg PO Q6AM 11/05/19 Oxcarbazepine [Trileptal] 600 mg PO QHS 11/05/19 Pravastatin Sodium [Pravachol] 20 mg PO QPM 11/05/19 Quetiapine Fumarate [Quetiapine Fumarate ER] 600 mg PO QPM 11/05/19 Levofloxacin [Levaquin 500 mg Tablet] 500 mg PO DAILY 3 Days #3 tablet 11/15/19 History of Present Illiness History of Present Illness: Admitting hospitalist's H&P: ANTHONY CARLSON is a 29 year old male who has a day history now of fall fever chills body aches. Patient unfortunately is autistic and lives in a [facility] so therefore his history is given by his care provider. They said on Sunday he started complaining of just not feeling well and then on Sunday he complained more body aches. Sunday he started running a fever today she was get ready taking to his primary care provider when he was just so weak he could not get out of bed she called 911. Patient has also had a cough. Chest x-ray today shows a probable left lower lobe pneumonia and a small effusion. White blood cell counts 8200. Rapid strep is negative flu flu a and B is negative Lactic acid level is pending Will be started on IVs Rocephin and Zithromax, IV fluids. Told the care provider that was in the room may take up to 5 days for the patient to improve enough to where he can be switched to p.o. antibiotics. Also if this is a viral illness the antibiotics will not make much of a difference. Since his illness is gone on for 4 days now he is out of the window for Tamiflu that I would potentially add to the antibiotics. Patient did answer my questions appropriately in the emergency room, though he appeared to be somewhat lauren rgic. Caregiver states that he is normally usually wide awake and active. Hospital Course Hospital Course: This is a 29-year-old male with a distant who was brought in due to fever and chills. Patient was found to have bilateral lower lobe pneumonia with consolidation and left upper lobe pneumonia. He was started on broad-spectrum IV antibiotics. He had a prolonged course as he did develop hypoxia. He eventually required BiPAP. He was also given steroids and breathing treatments. Patient slowly but gradually improved. He was eventually weaned off supplemental O2. He returned to his baseline. He was both ambulate the hallway on room air without any desaturation or acute issues. Patient will complete 3 more days p.o. levofloxacin. Physical Exam Vital Signs: Temp Pulse Resp BP Pulse Ox 98.0 F 94 20 127/60 H 90 L 11/15/19 12:52 11/15/19 12:52 11/15/19 12:52 11/15/19 12:52 11/15/19 12:52 Intake & Output 11/14/19 11/15/19 11/16/19 06:59 06:59 06:59 Intake Total 4835 1914 Output Total 5200 1500 Balance -365 414 Weight 223 lb 8.78 oz 223 lb 12.307 oz General appearance: PRESENT: no acute distress, well-developed, well-nourished Head exam: PRESENT: atraumatic, normocephalic Eye exam: PRESENT: conjunctiva pink, EOMI, PERRLA. ABSENT: scleral icterus Ear exam: PRESENT: normal external ear exam Mouth exam: PRESENT: moist, tongue midline Neck exam: ABSENT: carotid bruit, JVD, lymphadenopathy, thyromegaly Respiratory exam: PRESENT: clear to auscultation sona. ABSENT: rales, rhonchi, wheezes Cardiovascular exam: PRESENT: RRR. ABSENT: diastolic murmur, rubs, systolic murmur Pulses: PRESENT: normal dorsalis pedis pul GI/Abdominal exam: PRESENT: normal bowel sounds, soft. ABSENT: distended, guarding, mass, organolmegaly, rebound, tenderness Rectal exam: PRESENT: deferred Extremities exam: PRESENT: full ROM. ABSENT: calf tenderness, clubbing, pedal edema Neurological exam: PRESENT: alert, awake, oriented to person, oriented to place, oriented to time, CN II-XII grossly intact. ABSENT: motor sensory deficit Results Laboratory Results: WBC 5.5 10^3/uL (4.0-10.5) 11/10/19 07:30 RBC 3.60 10^6/uL (4.35-5.55) L 11/10/19 07:30 Hgb 12.0 g/dL (13.5-17.0) L 11/10/19 07:30 Hct 34.6 % (37.9-51.0) L 11/10/19 07:30 MCV 96 fl (80-97) 11/10/19 07:30 MCH 33.3 pg (27.0-33.4) 11/10/19 07:30 MCHC 34.6 g/dL (32.0-36.0) 11/10/19 07:30 RDW 14.0 % (11.5-14.0) 11/10/19 07:30 Plt Count 237 10^3/uL (150-450) 11/10/19 07:30 Lymph % (Auto) Not Reportable 11/10/19 07:30 Mower % (Auto) Not Reportable 11/10/19 07:30 Eos % (Auto) Not Reportable 11/10/19 07:30 Baso % (Auto) Not Reportable 11/10/19 07:30 Absolute Neuts (auto) Not Reportable 11/10/19 07:30 Absolute Lymphs (auto) Not Reportable 11/10/19 07:30 Absolute Monos (auto) Not Reportable 11/10/19 07:30 Absolute Eos (auto) Not Reportable 11/10/19 07:30 Absolute Basos (auto) Not Reportable 11/10/19 07:30 Total Counted 100 11/10/19 07:30 Seg Neutrophils % Not Reportable 11/10/19 07:30 Seg Neuts % (Manual) 70 % (42-78) 11/10/19 07:30 Band Neutrophils % 3 % (3-5) 11/10/19 07:30 Lymphocytes % (Manual) 10 % (13-45) L 11/10/19 07:30 Atypical Lymphs % 1 % (0) 11/10/19 07:30 Monocytes % (Manual) 13 % (3-13) 11/10/19 07:30 Eosinophils % (Manual) 0 % (0-6) 11/10/19 07:30 Basophils % (Manual) 0 % (0-2) 11/10/19 07:30 Metamyelocytes % 1 % (0-1) 11/10/19 07:30 Myelocytes % 2 % (0) H 11/10/19 07:30 Abs Neuts (Manual) 4.2 10^3/uL (1.7-8.2) 11/10/19 07:30 Abs Lymphs (Manual) 0.6 10^3/uL (0.5-4.7) 11/10/19 07:30 Abs Monocytes (Manual) 0.7 10^3/uL (0.1-1.4) 11/10/19 07:30 Absolute Eos (Manual) 0.0 10^3/uL (0.0-0.6) 11/10/19 07:30 Abs Basophils (Manual) 0.0 10^3/uL (0.0-0.2) 11/10/19 07:30 Toxic Vacuolation PRESENT 11/10/19 07:30 Clumped Platelets PRESENT 11/10/19 07:30 Platelet Comment ADEQUATE 11/10/19 07:30 Polychromasia SLIGHT 11/10/19 07:30 Anisocytosis SLIGHT 11/10/19 07:30 RBC Morph Comment NORMO-CYTIC/CHROMIC 11/07/19 13:59 D-Dimer 2.28 ug/mL (0.00-0.50) H 11/07/19 13:59 Carbonic Acid 1.60 mmol/L (1.05-1.35) H 11/10/19 10:20 HCO3/H2CO3 Ratio 22:1 11/10/19 10:20 ABG pH 7.45 (7.35-7.45) 11/10/19 10:20 ABG pCO2 53.2 mmHg (35-45) H 11/10/19 10:20 ABG pO2 106.4 mmHg (80-100) H 11/10/19 10:20 ABG HCO3 36.0 mmol/L (20-24) H 11/10/19 10:20 ABG Total CO2 37.6 mmol/L (23-27) H 11/10/19 10:20 ABG O2 Saturation 98.0 % (94-98) 11/10/19 10:20 ABG Base Excess 10.4 mmol/L 11/10/19 10:20 VBG pH 7.47 (7.30-7.42) H 11/08/19 17:30 VBG pCO2 43.1 mmHg (35-63) 11/08/19 17:30 VBG HCO3 30.5 mmol/L (20-32) 11/08/19 17:30 VBG Base Excess 6.1 mmol/L 11/08/19 17:30 FiO2 100 11/10/19 10:20 Sodium 140.6 mmol/L (137-145) 11/10/19 08:09 Potassium 4.9 mmol/L (3.6-5.0) 11/10/19 08:09 Chloride 98 mmol/L (98-107) 11/10/19 08:09 Carbon Dioxide 34 mmol/L (22-30) H 11/10/19 08:09 Anion Gap 9 (5-19) 11/10/19 08:09 BUN 12 mg/dL (7-20) 11/10/19 08:09 Creatinine 0.54 mg/dL (0.52-1.25) 11/11/19 11:28 Est GFR ( Amer) > 60 (>60) 11/11/19 11:28 Est GFR (MDRD) Non-Af > 60 (>60) 11/11/19 11:28 Glucose 139 mg/dL (75-110) H 11/10/19 08:09 POC Glucose 215 mg/dL (70-110) H 11/05/19 10:15 Hemoglobin A1c % 5.5 % (4.7-6.0) 11/06/19 12:36 Lactic Acid 2.0 mmol/L (0.7-2.1) 11/05/19 10:23 Calcium 9.1 mg/dL (8.4-10.2) 11/10/19 08:09 Magnesium 2.3 mg/dL (1.6-2.3) 11/06/19 04:36 Total Bilirubin 0.6 mg/dL (0.2-1.3) 11/05/19 10:23 Direct Bilirubin 0.4 mg/dL (0.0-0.4) 11/05/19 10:23 Neonat Total Bilirubin Not Reportable 11/05/19 10:23 Neonat Direct Bilirubin Not Reportable 11/05/19 10:23 Neonat Indirect Bili Not Reportable 11/05/19 10:23 AST 51 U/L (17-59) 11/05/19 10:23 ALT 45 U/L (<50) 11/05/19 10:23 Alkaline Phosphatase 92 U/L (38-126) 11/05/19 10:23 Total Protein 6.4 g/dL (6.3-8.2) 11/05/19 10:23 Albumin 3.6 g/dL (3.5-5.0) 11/05/19 10:23 Urine Color YELLOW 11/09/19 15:25 Urine Appearance SLIGHTLY-CLOUDY 11/09/19 15:25 Urine pH 6.0 (5.0-9.0) 11/09/19 15:25 Ur Specific [place] 1.020 11/09/19 15:25 Urine Protein 30 mg/dL (NEGATIVE) H 11/09/19 15:25 Urine Glucose (UA) 50 mg/dL (NEGATIVE) H 11/09/19 15:25 Urine Ketones NEGATIVE mg/dL (NEGATIVE) 11/09/19 15:25 Urine Blood NEGATIVE (NEGATIVE) 11/09/19 15:25 Urine Nitrite NEGATIVE (NEGATIVE) 11/09/19 15:25 Urine Bilirubin NEGATIVE (NEGATIVE) 11/09/19 15:25 Urine Urobilinogen NEGATIVE mg/dL (<2.0) 11/09/19 15:25 Ur Leukocyte Esterase NEGATIVE (NEGATIVE) 11/09/19 15:25 Urine WBC (Auto) 3 /HPF 11/09/19 15:25 Urine RBC (Auto) 1 /HPF 11/09/19 15:25 Squamous Epi Cells Auto <1 /HPF 11/09/19 15:25 Urine Mucus (Auto) FEW /LPF 11/09/19 15:25 Urine Ascorbic Acid 20 (NEGATIVE) H 11/09/19 15:25 Time Trough Drawn 1128 11/11/19 11:28 Vancomycin Trough 10.3 ug/mL (5.0-20.0) 11/11/19 11:28 Influenza A (Rapid) NEGATIVE (NEGATIVE) 11/05/19 10:47 Influenza B (Rapid) NEGATIVE (NEGATIVE) 11/05/19 10:47 Group A Strep Rapid NEGATIVE (NEGATIVE) 11/05/19 10:47 Slides for Path Review PATHOLOGIST REVIEWED 11/10/19 07:30 Impressions: Shoulder X-Ray 11/05/19 00:00 IMPRESSION: Widening of the right AC joint as described. No fracture. Chest X-Ray 11/05/19 10:29 IMPRESSION: Findings most likely represent left lower lobe pneumonia and a small effusion. Follow-up films are recommended to exclude underlying mass lesion. Chest X-Ray 11/07/19 00:00 IMPRESSION: Increased pleural and parenchymal opacities in the inferior left hemithorax that could represent a combination of pleural fluid, atelectasis and/or pneumonia. Chest/Abdomen CTA 11/08/19 00:00 IMPRESSION: No CT angio evidence of acute pulmonary emboli or thoracic aortic dissection Very dense pneumonia multifocal. No significant pleural effusions. Stroke Is this a Stroke Patient?: No Acute Heart Failure - Is this a Heart Failure Patient?: No
== END 2019-11-15 14:28 | disposition other institution (70) | DRG 193 ==
LOC: ER 09:53 → UNDOADMIN 14:20 → EH 14:20 → 5 20:00
PROVIDERS: ADMIT Hospitalist; ATTEND Hospitalist
PROC: 5A09557 Assistance with Respiratory Ventilation, Greater than 96 Consecutive Hours, Continuous Positive Airway Pressure (ICD-10-PCS; principal; 2019-11-07)
PROC: 3E02340 Introduction of Influenza Vaccine into Muscle, Percutaneous Approach (ICD-10-PCS; 2019-11-07)
DX: J15.9 Unspecified bacterial pneumonia (principal); J96.01 Acute respiratory failure with hypoxia; F84.0 Autistic disorder; Z23 Encounter for immunization; Z79.899 Other long term (current) drug therapy; Z88.6 Allergy status to analgesic agent; Z99.81 Dependence on supplemental oxygen
CPT/HCPCS: 36415; 36600; 71045; 71046; 71275; 80048; 80053; 80202; 81001; 82565; 82803; 82962; 83036; 83605; 83735; 85025; 85379; 87040; 87070; 87804; 87880; 90686; 93005; 93010; 94640; 94660; 94667; 94668; 96361; 96365; 96367; 96375; 99285; J0456; J0696; J1650; J2060; J2405; J2550; J2920; J2930; J3370; J3490; J7030; J7060; J7512; J7614; J7620

== ENCOUNTER 2019-11-23 09:35 | Emergency (ER) | payer MEDICAID ==
--- NOTE | 2019-11-23 09:51 | ER Document Report ---
ED Medical Screen (RME) - General Chief Complaint: Cold Symptoms Stated Complaint: COLD SYMPTOMS Time Seen by Provider: 11/23/19 09:43 Primary Care Provider: BISHNU CID PA-C [Primary Care Provider] - Follow up as needed Mode of Arrival: Ambulatory Information source: Patient Notes: 29-year-old male patient presents emergency department chief complaint of cough, congestion, fever. Patient reports recent discharge from this hospital for pneumonia. Patient's caregiver is at the bedside as patient appears to have some type of developmental delay. Lung sounds clear and equal bilaterally. Patient answering all questions appropriately. Vital signs not available to me at the time of my assessment. I have greeted and performed a rapid initial assessment of this patient. A comprehensive ED assessment and evaluation of the patient, analysis of test results and completion of the medical decision making process will be conducted by additional ED providers. I have specifically instructed the patient or family members with the patient to immediately return to any nursing staff should anything change in the patient's condition or with their chief complaint. TRAVEL OUTSIDE OF THE [place] IN LAST 30 DAYS: No - Related Data Allergies/Adverse Reactions: acetaminophen [From Tylenol] Allergy (Verified 11/05/19 10:32) Past Medical History - Past Medical History Cardiac Medical History: Denies: Hx Coronary Artery Disease, Hx Heart Attack, Hx Hypertension Pulmonary Medical History: Reports: Hx Asthma Denies: Hx Bronchitis, Hx COPD, Hx Pneumonia Neurological Medical History: Denies: Hx Cerebrovascular Accident, Hx Seizures Musculoskeltal Medical History: Denies Hx Arthritis Past Surgical History: Denies: Hx Pacemaker - Immunizations Hx Diphtheria, Pertussis, Tetanus Vaccination: Yes Doctor's Discharge - Discharge Referrals: BISHNU CID PA-C [Primary Care Provider] - Follow up as needed
[2019-11-23 10:30] LABS: A TYPE INFLUENZA AG NEGATIVE (NEGATIVE); B INFLUENZA AG NEGATIVE (NEGATIVE)
[2019-11-23 10:38] LABS: HEMOGLOBIN 12.8 g/dL (13.5-17.0); MEAN CORPUSCULAR HEMOGLOBIN 33.5 pg (27.0-33.4); MEAN CORPUSCULAR HGB CONC 34.5 g/dL (32.0-36.0); MEAN CORPUSCULAR VOLUME 97 fl (80-97); PLATELET COUNT 192 10^3/uL (150-450); RED BLOOD COUNT 3.81 10^6/uL (4.35-5.55); RED CELL DISTRIBUTION WIDTH 14.1 % (11.5-14.0); WHITE BLOOD COUNT 3.5 10^3/uL (4.0-10.5)
--- NOTE | 2019-11-23 10:56 | RADIOLOGY REPORT (SQ) ---
EXAM DESCRIPTION: CHEST 2 VIEWS COMPLETED DATE/TIME: 11/23/2019 10:20 am REASON FOR STUDY: cough/fever COMPARISON: 11/07/2019 TECHNIQUE: Frontal and lateral radiographic views of the chest acquired. NUMBER OF VIEWS: Two view. LIMITATIONS: None. FINDINGS: LUNGS AND PLEURA: No opacities, masses or pneumothorax. No pleural effusion. MEDIASTINUM AND HILAR STRUCTURES: No masses or contour abnormalities. HEART AND VASCULAR STRUCTURES: Heart normal size. No evidence for failure. BONES: No acute findings. HARDWARE: None in the chest. OTHER: No other significant finding. IMPRESSION: NO SIGNIFICANT RADIOGRAPHIC FINDING IN THE CHEST. TECHNICAL DOCUMENTATION: JOB ID: [id number] [employer]- All Rights Reserved Reading location - IP/workstation name: [email or web address]
[2019-11-23 11:14] LABS: ABSOLUTE LYMPHOCYTES# (MANUAL) 1.2 10^3/uL (0.5-4.7); ABSOLUTE MONOCYTES # (MANUAL) 0.7 10^3/uL (0.1-1.4); BASOPHILS % (MANUAL) 2 % (0-2); EOSINOPHILS % (MANUAL) 4 % (0-6); LYMPHOCYTES % (MANUAL) 33 % (13-45); MONOCYTES % (MANUAL) 21 % (3-13); SEGMENTED NEUTROPHILS % (MAN) 40 % (42-78); TOTAL CELLS COUNTED 100
[2019-11-23 11:16] LABS: ANISOCYTOSIS SLIGHT; PLATELET COMMENT ADEQUATE
--- NOTE | 2019-11-23 11:38 | ER Document Report ---
ED Flu Like - General Chief Complaint: Flu Symptoms Stated Complaint: COLD SYMPTOMS Time Seen by Provider: 11/23/19 09:43 Primary Care Provider: BISHNU CID PA-C [Primary Care Provider] - Follow up as needed Mode of Arrival: Ambulatory Notes: Patient is a 29-year-old male with a history of autism who presents emergency department with chief complaint of low-grade fever. Patient is a resident of a [facility]. He was discharged from the hospital on November 15 after being diagnosed with pneumonia. He was sent home with 3 days of Levaquin which she did complete. Last night patient developed a low-grade fever of 100.1 with sinus congestion and cough. Home health nurse at the bedside reports that the patient has had decreased p.o. intake and has not urinated in the past 10 hours. He reports generalized weakness and body aches. Denies nausea, vomiting or diarrhea. Unknown if he has been exposed to sick contacts. TRAVEL OUTSIDE OF THE [place] IN LAST 30 DAYS: No - Related Data Allergies/Adverse Reactions: acetaminophen [From Tylenol] Allergy (Verified 11/05/19 10:32) Past Medical History - General Information source: Patient - Social History Smoking Status: Never Smoker Frequency of alcohol use: None Drug Abuse: None Lives with: Other - prison Family History: Reviewed & Not Pertinent Patient has suicidal ideation: No Patient has homicidal ideation: No - Past Medical History Cardiac Medical History: Reports: None Denies: Hx Coronary Artery Disease, Hx Heart Attack, Hx Hypertension Pulmonary Medical History: Reports: Hx Asthma Denies: Hx Bronchitis, Hx COPD, Hx Pneumonia EENT Medical History: Reports: None Neurological Medical History: Reports: None. Denies: Hx Cerebrovascular Accident, Hx Seizures Endocrine Medical History: Reports: None Renal/ Medical History: Reports: None Malignancy Medical History: Reports None GI Medical History: Reports: None Musculoskeletal Medical History: Reports None, Denies Hx Arthritis Skin Medical History: Reports None Psychiatric Medical History: Reports: Hx Attention Deficit Hyperactivity Disorder Traumatic Medical History: Reports: None Infectious Medical History: Reports: None Surgical Hx: Negative Past Surgical History: Denies: Hx Pacemaker - Immunizations Hx Diphtheria, Pertussis, Tetanus Vaccination: Yes Review of Systems - Review of Systems Constitutional: See HPI EENT: See HPI Cardiovascular: No symptoms reported Respiratory: See HPI Gastrointestinal: See HPI Genitourinary: See HPI Male Genitourinary: No symptoms reported Musculoskeletal: No symptoms reported Skin: No symptoms reported Hematologic/Lymphatic: No symptoms reported Neurological/Psychological: No symptoms reported Physical Exam - Vital signs Vitals: Temp Pulse Resp BP Pulse Ox 97.5 F 92 18 114/64 98 11/23/19 09:41 11/23/19 09:41 11/23/19 09:41 11/23/19 09:41 11/23/19 09:41 Interpretation: Normal - Notes Notes: GENERAL: Well-appearing, well-nourished and in no acute distress. HEAD: Atraumatic, normocephalic. No sinus tenderness with palpation. EYES: Pupils equal round and reactive to light, extraocular movements intact, sclera anicteric, conjunctiva are normal. ENT: TMs normal, nares patent, oropharynx clear without exudates. Moist mucous membranes. NECK: Normal range of motion, supple without lymphadenopathy or JVD. LUNGS: Breath sounds clear to auscultation bilaterally and equal. No wheezes rales or rhonchi. HEART: Regular rate and rhythm without murmurs, rubs or gallops. ABDOMEN: Soft, nontender, normoactive bowel sounds. No guarding, no rebound. No masses appreciated. BACK: No cervical, thoracic, lumbar midline tenderness. No saddle anesthesia, normal distal neurovascular exam. GENITOURINARY: Deferred. EXTREMITIES: Normal range of motion, no pitting or edema. No clubbing or cy anosis. NEUROLOGICAL: Cranial nerves II through XII grossly intact. Normal speech, normal gait. PSYCH: Normal mood, normal affect. SKIN: Warm, Dry, normal turgor, no rashes or lesions noted. Course - Re-evaluation Re-evalutation: 11/23/19 11:37 Staff report that the patient has not urinated in the past 10 hours. Patient has decreased p.o. intake. I have ordered a urinalysis. I did inform the patient that I would like to start an IV and give him fluids. Patient refusing IV at this time. Patient is drinking water at the bedside. Denies vomiting or diarrhea. 11/23/19 11:43 Patient is not tachycardic, hypotensive or febrile at this time. Patient sitting upright on stretcher watching his iPad. Patient nontoxic-appearing. 11/23/19 13:07 Patient is tolerating liquids at this time without vomiting or diarrhea. Patient's urinalysis unremarkable. Patient sitting upright on stretcher no acute distress, nontoxic-appearing. Healthcare worker at the bedside reports that the patient does have a follow-up with his primary care physician this week with Bishun Cid. Patient given strict return precautions. - Vital Signs Vital signs: Temp Pulse Resp BP Pulse Ox 97.5 F 92 18 114/64 98 11/23/19 09:41 11/23/19 09:41 11/23/19 09:41 11/23/19 09:41 11/23/19 09:41 - Laboratory Result Diagrams: 11/23/19 09:58 11/23/19 09:58 Laboratory results interpreted by me: 11/23/19 11/23/19 11/23/19 09:58 09:58 12:15 WBC 3.5 L RBC 3.81 L Hgb 12.8 L Hct 37.0 L MCH 33.5 H RDW 14.1 H Seg Neuts % (Manual) 40 L Monocytes % (Manual) 21 H Abs Neuts (Manual) 1.4 L AST 73 H Alkaline Phosphatase 131 H Urine Ascorbic Acid 20 H 11/23/19 12:19 Laboratory 11/23/19 11/23/19 11/23/19 09:58 09:58 09:58 WBC 3.5 L RBC 3.81 L Hgb 12.8 L Hct 37.0 L MCV 97 MCH 33.5 H MCHC 34.5 RDW 14.1 H Plt Count 192 Lymph % (Auto) Not Reportable Butler % (Auto) Not Reportable Eos % (Auto) Not Reportable Baso % (Auto) Not Reportable Absolute Neuts (auto) Not Reportable Absolute Lymphs (auto) Not Reportable Absolute Monos (auto) Not Reportable Absolute Eos (auto) Not Reportable Absolute Basos (auto) Not Reportable Total Counted 100 Seg Neutrophils % Not Reportable Seg Neuts % (Manual) 40 L Lymphocytes % (Manual) 33 Monocytes % (Manual) 21 H Eosinophils % (Manual) 4 Basophils % (Manual) 2 Abs Neuts (Manual) 1.4 L Abs Lymphs (Manual) 1.2 Abs Monocytes (Manual) 0.7 Absolute Eos (Manual) 0.1 Abs Basophils (Manual) 0.1 Platelet Comment ADEQUATE Anisocytosis SLIGHT Sodium Potassium Chloride Carbon Dioxide Anion Gap BUN Creatinine Est GFR ( Amer) Est GFR (MDRD) Non-Af Glucose Calcium Total Bilirubin Direct Bilirubin Neonat Total Bilirubin Neonat Direct Bilirubin Neonat Indirect Bili AST ALT Alkaline Phosphatase NT-Pro-B Natriuret Pep 69 Total Protein Albumin Influenza A (Rapid) NEGATIVE Influenza B (Rapid) NEGATIVE 11/23/19 09:58 WBC RBC Hgb Hct MCV MCH MCHC RDW Plt Count Lymph % (Auto) Butler % (Auto) Eos % (Auto) Baso % (Auto) Absolute Neuts (auto) Absolute Lymphs (auto) Absolute Monos (auto) Absolute Eos (auto) Absolute Basos (auto) Total Counted Seg Neutrophils % Seg Neuts % (Manual) Lymphocytes % (Manual) Monocytes % (Manual) Eosinophils % (Manual) Basophils % (Manual) Abs Neuts (Manual) Abs Lymphs (Manual) Abs Monocytes (Manual) Absolute Eos (Manual) Abs Basophils (Manual) Platelet Comment Anisocytosis Sodium 140.2 Potassium 4.4 Chloride 100 Carbon Dioxide 27 Anion Gap 13 BUN 17 Creatinine 0.85 Est GFR ( Amer) > 60 Est GFR (MDRD) Non-Af > 60 Glucose 87 Calcium 9.4 Total Bilirubin 0.3 Direct Bilirubin 0.3 Neonat Total Bilirubin Not Reportable Neonat Direct Bilirubin Not Reportable Neonat Indirect Bili Not Reportable AST 73 H ALT 59 Alkaline Phosphatase 131 H NT-Pro-B Natriuret Pep Total Protein 7.7 Albumin 4.4 Influenza A (Rapid) Influenza B (Rapid) - Diagnostic Test Radiology reviewed: Reports reviewed Radiology results interpreted by me: 11/23/19 11:36 Chest X-Ray 11/23/19 09:50 IMPRESSION: NO SIGNIFICANT RADIOGRAPHIC FINDING IN THE CHEST. Discharge - Discharge Clinical Impression: Nasal congestion, Generalized body aches URI (upper respiratory infection) Qualifiers: URI type: unspecified viral URI Qualified Code(s): J06.9 - Acute upper respiratory infection, unspecified Condition: Stable Disposition: HOME, SELF-CARE Additional Instructions: *Today was seen in the emergency department for cough and low-grade fever. Your blood work is unremarkable. Your chest x-ray was clear and does not show a pneumonia. Please take ibuprofen as needed for pain and fever. Make sure you are pushing fluids to stay hydrated. At this time your diagnosis of viral upper respiratory infection also known as a common cold. You can have this night nasal congestion, drainage and often sore throat and cough. This is highly contagious. Please make sure that you are washing hands and covering your mouth. Please return emergency department if you develop any new or worsening symptoms or spiking high fevers that is not controlled with ibuprofen. UPPER RESPIRATORY ILLNESS: You have a viral infection of the respiratory passages -- a "cold." This common infection causes nasal congestion, drainage, and often sore throat and cough. It is highly contagious. The disease usually lasts about 10 to 14 days. There is no "cure" for the viral infection -- it must run its course. If there is a complication, such as bacterial infection in the nose, sinuses, middle ear, or bronchial tubes, antibiotics may be required. The antibiotics won't affect the virus. Drink plenty of fluids. A humidifier may help. An expectorant medication or decongestant may make you more comfortable. Use acetaminophen or ibuprofen for fever or aches. See the doctor if fever persists over two days, if there is any significant worsening of your symptoms, or if you simply fail to improve as expected. FOLLOW-UP CARE: If you have been referred to a physician for follow-up care, call the physicians office for an appointment as you were instructed or within the next two days. If you experience worsening or a significant change in your symptoms, notify the physician immediately or return to the Emergency Department at any time for re-evaluation. Referrals: BISHNU CID PA-C [Primary Care Provider] - Follow up as needed
[2019-11-23 12:08] LABS: ALBUMIN 4.4 g/dL (3.5-5.0); ALKALINE PHOSPHATASE 131 U/L (38-126); ANION GAP 13 (5-19); ASPARTATE AMINO TRANSFERASE 73 U/L (17-59); BILIRUBIN,DIRECT 0.3 mg/dL (0.0-0.4); BILIRUBIN,TOTAL 0.3 mg/dL (0.2-1.3); BLOOD UREA NITROGEN 17 mg/dL (7-20); CALCIUM 9.4 mg/dL (8.4-10.2); CARBON DIOXIDE 27 mmol/L (22-30); CHLORIDE 100 mmol/L (98-107); GLUCOSE 87 mg/dL (75-110); POTASSIUM 4.4 mmol/L (3.6-5.0); TOTAL PROTEIN 7.7 g/dL (6.3-8.2)
[2019-11-23 12:29] LABS: APPEARANCE,URINE SLIGHTLY-CLOUDY; BILIRUBIN,URINE NEGATIVE (NEGATIVE); COLOR,URINE YELLOW; GLUCOSE, URINE NEGATIVE (NEGATIVE); KETONES,URINE NEGATIVE (NEGATIVE); LEUKOCYTE ESTERASE,URINE NEGATIVE (NEGATIVE); NITRITE,URINE NEGATIVE (NEGATIVE); PROTEIN,URINE NEGATIVE (NEGATIVE); URINE SPECIFIC GRAVITY 1.019; UROBILINOGEN,URINE NEGATIVE mg/dL (<2.0)
[2019-11-23 13:13] VITALS: BP 104/70
== END 2019-11-23 13:13 | disposition home or self-care (01) ==
LOC: ER 09:35
DX: J06.9 Acute upper respiratory infection, unspecified (principal); B97.89 Other viral agents as the cause of diseases classified elsewhere; R09.81 Nasal congestion; R05 Cough; R53.1 Weakness; R52 Pain, unspecified; J45.909 Unspecified asthma, uncomplicated; F84.0 Autistic disorder; Z87.01 Personal history of pneumonia (recurrent); Z88.8 Allergy status to other drugs, medicaments and biological substances
CPT/HCPCS: 36415; 71046; 80053; 81001; 83880; 85025; 87804; 99283